=== PATIENT | female | born 1955 | race Caucasian/White ===

== ENCOUNTER → 2020-10-10 13:36 | Outpatient (CLI) | payer MEDICARE, MEDICAID, SELFPAY ==
[2020-10-11 14:16] LABS: Covid-19 Nasal PCR Sendout Lex POSITIVE
== END ==
PROVIDERS: Visit Provider Family Medicine
DX: Z20.828 Contact with and (suspected) exposure to other viral communicable diseases (principal); U07.1 COVID-19
CPT/HCPCS: U0004

== ENCOUNTER 2021-07-30 17:35 | Inpatient (IN) | payer MEDICARE, MEDICAID, SELFPAY ==
[2021-07-30] VITALS (10 sets, daily range): BP systolic 95–118; BP diastolic 60–92; PULSE 84–108; RESP 16; TEMP 36.6; O2SAT 96–99; BMI 39.4; BMI 46.3; BMI 36.0
[2021-07-30 18:10] LABS: Basophils # 0.1 K/mm3 (0-0.2); Basophils % 0.7 % (0.1-2.0); Chloride 107 mmol/L (98-107); Eosinophils # 0.2 K/mm3 (0.0-0.4); Eosinophils % 1.5 % (0.1-12.0); Hematocrit 42.5 % (37.0-47.0); Hemoglobin 12.8 g/dL (12.2-16.2); Lymphocytes # 2.2 K/mm3 (0.7-4.5); Lymphocytes % 20.2 % (10-50); Mean Corpuscular HGB Conc 30.1 g/dL (31.8-35.4); Mean Corpuscular Hemoglobin 24.5 pg (27.0-31.2); Mean Corpuscular Volume 81.4 fl (81-99); Mean Platelet Volume 6.7 fl (7.4-10.4); Monocytes # 0.5 K/mm3 (0.1-1.0); Monocytes % 4.9 % (1.7-9.3); Neutrophils # 7.8 K/mm3 (1.8-7.8); Neutrophils % 72.7 % (37.0-80.0); Platelet Count 371 K/mm3 (142-424); Potassium 4.4 mmoL/L (3.5-5.1); Red Blood Count 5.22 M/mm3 (4.20-5.40); Red Cell Distribution Width 18.3 % (11.5-17.5); Sodium 145 mmol/L (136-145); White Blood Count 10.7 K/mm3 (4.8-10.8)
[2021-07-30 18:13] LABS: Alanine Aminotransferase 37 U/L (12-78); Albumin Level 3.8 g/dl (3.5-5.0); Alkaline Phosphatase 143 U/L (38-126); Anion Gap 16.4 mEq/L (5-15); Aspartate Amino Transferase 59 U/L (14-36); Bilirubin,Total 0.3 mg/dl (0.2-1.3); Blood Urea Nitrogen 22 mg/dl (7-17); Carbon Dioxide 26 mmol/L (22.0-30.0); Creatinine Clearance Estimated 46 mL/min (50-200); Estimated Glomerular Filt Rate 71 ml/min (>60); GFR (African American) 86 ML/MIN (>60); Globulin 3.9 g/dL (1.3-3.2); Total Protein,Serum 7.7 g/dl (6.3-8.2)
[2021-07-30 18:14] LABS: Calcium 9.2 mg/dl (8.4-10.2); Glucose 181 mg/dl (74-100)
--- NOTE | 2021-07-30 19:21 | PC.NURSE ---
pt sister phone number pt sister is thi rahman states she is at work in [place] but can be reach on her cell phone
--- NOTE | 2021-07-30 19:40 | CT_ITS ---
PROCEDURE INFORMATION: Exam: CT Abdomen And Pelvis With Contrast Exam date and time: 07/30/2021 7:40 PM Age: 66 years old Clinical indication: Other: Gi bleed; Patient HX: Rectal bleeding, intermediate patient, confused TECHNIQUE: Imaging protocol: Computed tomography of the abdomen and pelvis with contrast. Radiation optimization: All CT scans at this facility use at least one of these dose optimization techniques: automated exposure control; mA and/or kV adjustment per patient size (includes targeted exams where dose is matched to clinical indication); or iterative reconstruction. Contrast material: ISOVUE; Contrast volume: 75 ml; Contrast route: IV; COMPARISON: No relevant prior studies available. FINDINGS: Lungs: Areas of infiltrate, atelectasis or scar at both lung bases, left greater than right. Small calcified granuloma noted within the left posterior costophrenic angle. There is pleural thickening noted at the left lung base. Coronary artery calcification identified within the coronary arteries. Liver: The liver is normal in size and attenuation. No intrahepatic biliary dilitation. Gallbladder and bile ducts: Cholecystectomy has been performed. No evidence of extrahepatic biliary dilatation. Pancreas: Normal. No ductal dilation. Spleen: Normal. No splenomegaly. Granulomatous calcifications are noted. Adrenal glands: Normal. No mass. Kidneys and ureters: Normal. No hydronephrosis. Stomach and bowel: Some thickening of the wall of the rectal vault. The possibility of inflammatory disease involving the rectum and anus is considered. This would be better assessed by direct visualization. There is diffuse fecal retention throughout the colon. The stomach and small bowel appear unremarkable. Small hiatal hernia noted above the gastroesophageal junction. Appendix: Unremarkable. Intraperitoneal space: Unremarkable. No free air. No significant fluid collection. Vasculature: Atheromatous arterial calcification identified. No abdominal aortic aneurysm. Lymph nodes: Unremarkable. No enlarged lymph nodes. Urinary bladder: Unremarkable as visualized. Reproductive: Calcific myometrial changes would suggest the presence of small internal fibroids. The uterus does not appear enlarged. No evidence of adnexal mass. Bones/joints: Degenerative changes of the lower lumbar spine. No acute fracture. Soft tissues: Unremarkable. IMPRESSION: 1. There is some thickening of the rectal vault and the region of the anus. The possibility of inflammatory disease involving the rectum and anus is considered. This would be better assessed by direct visualization. No evidence of intestinal obstruction. 2. Area of infiltrate, atelectasis, or scar at the lung bases, greater on the left. 3. Cholecystectomy has been performed.
--- NOTE | 2021-07-30 20:26 | HMH.EDGENADL ---
ED Disposition Clinical Impression: Rectal bleeding Disposition: Admitted as Observation Condition on Discharge: Serious Instructions: DI for Gastrointestinal Bleeding Referrals: Keith Bravo [Primary Care Provider] - - Critical Care Critical Care Time: No Attestation: On 07/30/21, the high probability of a clinically significant, sudden or life threatening deterioration of the following system(s) required my full and direct attention, intervention and personal management. The time I documented below is in addition to time spent performing reported procedures but includes the following listed in this critical care notation. Medical Decision Making - Ervin Inquiry Pt receiving controlled substance: No Vital Signs: 07/30/21 17:35 Temperature 98 F Temperature Source Oral Pulse Rate [Radial] 84 Respiratory Rate 16 Blood Pressure [Right Arm] 101/60 L Blood Pressure Mean [Right Arm] 73 Blood Pressure Position [Right Arm] Sitting 02 Sat by Pulse Oximetry 96 Oxygen Delivery Method Room Air - Lab Data Lab Results 07/30/21 17:50: WBC 10.7, RBC 5.22, Hgb 12.8, Hct 42.5, MCV 81.4, MCH 24.5 L, MCHC 30.1 L, RDW 18.3 H, Plt Count 371, MPV 6.7 L, Neut % (Auto) 72.7, Lymph % (Auto) 20.2, Adams % (Auto) 4.9, Eos % (Auto) 1.5, Baso % (Auto) 0.7, Neut # (Auto) 7.8, Lymph # (Auto) 2.2, Adams # (Auto) 0.5, Eos # (Auto) 0.2, Baso # (Auto) 0.1 07/30/21 17:50: Sodium 145, Potassium 4.4, Chloride 107, Carbon Dioxide 26, Anion Gap 16.4 H, BUN 22 H, Creatinine 0.80, Estimated Creat Clear 46, Estimated GFR 71, Est GFR ( Amer) 86, Glucose 181 H, Calcium 9.2, Total Bilirubin 0.3, AST 59 H, ALT 37, Alkaline Phosphatase 143 H, Total Protein 7.7, Albumin 3.8, Globulin 3.9 H, Albumin/Globulin Ratio 1.0 L 07/30/21 17:50: PT 12.6 H, INR 1.07, APTT 24.6 07/30/21 20:50: Blood Type A Positive, Antibody Screen Negative 07/30/21 21:17: SARS-CoV-2 (PCR) Not detected, Influenza A Untype (PCR) Not detected, Influenza Type B (PCR) Not detected Result diagrams: 07/30/21 17:50 07/30/21 17:50 Orders (Tests/Meds): ED MEDICATIONS Discontinued Medications Generic Name Dose Route Start Last Admin Trade Name Olmanq PRN Reason Stop Dose Admin Iopamidol 75 ml 07/30/21 21:16 07/30/21 21:17 Iopamidol-370 (76%);100ml Bottle IV 07/30/21 21:17 75 ml ONCE ONE Administration Sodium Chloride 10 ml 07/30/21 21:16 07/30/21 21:17 Sodium Chloride 0.9% 10ml Syr (Rad Only) IV 07/30/21 21:17 10 ml ONCE ONE Administration Sodium Chloride 1,000 ml 07/30/21 22:05 Sodium Chloride 0.9% 1000ml Bag IV 07/30/21 22:06 BOLUS ONE ORDERS Category Date Time Status Occult Blood,Stool Stat Lab 07/30/21 19:40 Ordered Urinalysis and Microscopic Stat Lab 07/30/21 19:39 Ordered - CT Data CT Scan: Abdomen, Pelvis Time Received: 22:[address] Reviewed: Yes: I have viewed the radiologist's interpretation Findings Narrative: PROCEDURE INFORMATION: Exam: CT Abdomen And Pelvis With Contrast Exam date and time: 07/30/2021 7:40 PM Age: 66 years old Clinical indication: Other: Gi bleed; Patient HX: Rectal bleeding, fdc patient, confused TECHNIQUE: Imaging protocol: Computed tomography of the abdomen and pelvis with contrast. Radiation optimization: All CT scans at this facility use at least one of these dose optimization techniques: automated exposure control; mA and/or kV adjustment per patient size (includes targeted exams where dose is matched to clinical indication); or iterative reconstruction. Contrast material: ISOVUE; Contrast volume: 75 ml; Contrast route: IV; COMPARISON: No relevant prior studies available. FINDINGS: Lungs: Areas of infiltrate, atelectasis or scar at both lung bases, left greater than right. Small calcified granuloma noted within the left posterior costophrenic angle. There is pleural thickening noted at the left lung base. Coronary artery calcification
[2021-07-30 20:57] LABS: Activated Partial Thrombo Time 24.6 seconds (22.8-30.6); Prothrombin Time 12.6 seconds (10.1-12.5)
[2021-07-30 20:58] LABS: INR 1.07 (0.9-1.1)
[2021-07-30 21:26] LABS: Coronavirus 19, PCR Not Detected (NotDetected); Influenza A, PCR Not Detected (NotDetected); Influenza B, PCR Not Detected (NotDetected)
--- NOTE | 2021-07-30 22:33 | PC.NURSE ---
Daughter called Password: [email or web address]
[2021-07-31] VITALS (18 sets, daily range): BP systolic 94–150; BP diastolic 56–94; PULSE 81–98; RESP 16–20; TEMP 36.2–37; O2SAT 92–98; BMI 36.0
--- NOTE | 2021-07-31 00:16 | PC.NURSE ---
patient arrived to floor via stretcher @ 00:00.f
[2021-07-31 06:14] LABS: POC Glucose,Bedside 136 (70-110)
[2021-07-31 07:10] LABS: Basophils # 0.1 K/mm3 (0-0.2); Basophils % 0.7 % (0.1-2.0); Eosinophils # 0.2 K/mm3 (0.0-0.4); Eosinophils % 1.8 % (0.1-12.0); Hematocrit 30.8 % (37.0-47.0); Lymphocytes # 3.1 K/mm3 (0.7-4.5); Lymphocytes % 34.7 % (10-50); Mean Corpuscular HGB Conc 31.3 g/dL (31.8-35.4); Mean Corpuscular Hemoglobin 25.3 pg (27.0-31.2); Mean Corpuscular Volume 80.7 fl (81-99); Mean Platelet Volume 6.5 fl (7.4-10.4); Monocytes # 0.7 K/mm3 (0.1-1.0); Monocytes % 7.9 % (1.7-9.3); Neutrophils # 4.9 K/mm3 (1.8-7.8); Neutrophils % 54.9 % (37.0-80.0); Platelet Count 298 K/mm3 (142-424); Red Blood Count 3.81 M/mm3 (4.20-5.40); Red Cell Distribution Width 18.4 % (11.5-17.5); White Blood Count 8.9 K/mm3 (4.8-10.8)
--- NOTE | 2021-07-31 07:11 | P.CONPHA_ITS ---
[facility] Pharmacy VTE Monitoring - Patient Demographics Admission date: 07/30/21 Report Date: 07/31/21 Time: 07:11 Allergies/Adverse Reactions: Patient Allergies iodine Allergy (Verified 07/30/21 17:40) Height: 1.63 m Weight: 95.799 kg Patient Problems: Current Active Problems Rectal bleeding (Acute) - VTE Risk Labs: VTE Related Lab Results Hgb 12.8 g/dL (12.2-16.2) 07/30/21 17:50 Hct 42.5 % (37.0-47.0) 07/30/21 17:50 Plt Count 371 K/mm3 (142-424) 07/30/21 17:50 PT 12.6 seconds (10.1-12.5) H 07/30/21 17:50 INR 1.07 (0.9-1.1) 07/30/21 17:50 APTT 24.6 seconds (22.8-30.6) 07/30/21 17:50 BUN 22 mg/dl (7-17) H 07/30/21 17:50 Creatinine 0.80 mg/dl (0.52-1.04) 07/30/21 17:50 Estimated Creat Clear 46 mL/min (50-200) 07/30/21 17:50 Was VTE Risk Assessment Performed: Yes - Prophylaxis VTE Prophylaxis Ordered?: Yes Types of VTE Prophylaxis: TEDS Knee High Location of Applied Device: Bilateral Lower Extremeties
[2021-07-31 07:38] LABS: Hemoglobin 9.6 g/dL (12.2-16.2)
--- NOTE | 2021-07-31 07:57 | HMH.PHAINT ---
verified home medication list using MAR from [facility]
--- NOTE | 2021-07-31 09:13 | HMH.GSCON ---
*Admission Date: 07/30/21 *Reason for consult:: Lower GI bleed *History of present illness: Patient is a 66-year-old female who presented to the emergency department yesterday evening from group home with rectal bleeding. She was admitted for inpatient management and surgical consultation. She had a CT scan which revealed possible thickening of the rectum. Review of Systems - Review of Systems Review of systems:: unable to obtain [facility] History I have reviewed the patient's past medical history: Yes Medical History: Reports:: Congestive Heart Failure, Diabetes Mellitus Type 2, Hyperlipidemia Denies:: Cancer, Diabetes Mellitus Type 1, MRSA *Have you ever received a pneumonia vaccine?: Yes *Have you received a flu vaccine this season?: Yes Other Medical History: Reports: Arthritis Amputation: Yes (Right BKA) Fractures: No - *Social History Smoking Status: Smoker, status unknown Alcohol Intake: never *Occupational Status:: disabled *Travel in the last 8 weeks: None Family Hx:: Unable to obtain [facility] Home Medications Medication Instructions Recorded Confirmed Type Aspirin [Aspirin 81mg EC Tab] 81 mg PO DAILY 07/30/21 07/30/21 History Atorvastatin Calcium [Lipitor 80mg 80 mg PO HS 07/30/21 07/30/21 History Tab] Clopidogrel Bisulfate [Clopidogrel 75 mg PO DAILY 07/30/21 07/30/21 History 75mg Tab] Furosemide [Furosemide 40MG tAB*] 40 mg PO DAILY 07/30/21 07/30/21 History Gabapentin 300 mg PO BID 07/30/21 07/30/21 History Insulin Glargine,Hum.rec.anlog 20 unit SQ DAILY 07/30/21 07/30/21 History [Lantus Insulin 100units/mL 10mL vial] Metoprolol Tartrate 50 mg PO BID 07/30/21 07/30/21 History Mirtazapine 45 mg PO HS 07/30/21 07/30/21 History OLANZapine [Zyprexa] 2.5 mg PO BID 07/30/21 07/31/21 History Pantoprazole Sodium 40 mg PO DAILY 07/30/21 07/30/21 History Pramipexole Di-HCl [Pramipexole 1 mg PO HS 07/30/21 07/30/21 History Dihydrochloride] Quetiapine Fumarate 50 mg PO QID 07/30/21 07/31/21 History lisinopriL [Lisinopril] 5 mg PO DAILY 07/30/21 07/30/21 History methocarbamoL [Methocarbamol 500mg 500 mg PO QID 07/30/21 07/30/21 History Tablet] mycophenolate mofetiL 500 mg PO BID 07/30/21 07/30/21 History [Mycophenolate Mofetil] predniSONE [Deltasone 10mg 10 mg PO DAILY 07/30/21 07/30/21 History tablet] Docusate Sodium [Docusate Sodium 100 mg PO DAILYP PRN 07/31/21 07/31/21 History 100mg Cap] Melatonin 3 mg PO HS 07/31/21 07/31/21 History Multivitamin 1 tab PO DAILY 07/31/21 07/31/21 History Nitroglycerin [Nitrostat 0.4mg SL 0.4 mg SL Q5MINP PRN 07/31/21 07/31/21 History Tablet] bisacodyL [Dulcolax 10mg Supp] 10 mg RC DAILYP PRN 07/31/21 07/31/21 History polyethylene glycoL 3350 [Miralax 17 gm PO DAILY 07/31/21 07/31/21 History 17gm Packet] Allergies Allergy/AdvReac Type Severity Reaction Status Date / Time iodine Allergy Verified 07/30/21 17:40 Exam Vital signs and Labs for Last 24 Hours: Temp Pulse Resp BP Pulse Ox 97.9 F 81 18 121/66 96 07/31/21 08:00 07/31/21 08:00 07/31/21 08:00 07/31/21 08:00 07/31/21 08:00 Laboratory Results - last 24 hr 07/30/21 17:50: WBC 10.7, RBC 5.22, Hgb 12.8, Hct 42.5, MCV 81.4, MCH 24.5 L, MCHC 30.1 L, RDW 18.3 H, Plt Count 371, MPV 6.7 L, Neut % (Auto) 72.7, Lymph % (Auto) 20.2, [place] % (Auto) 4.9, Eos % (Auto) 1.5, Baso % (Auto) 0.7, Neut # (Auto) 7.8, Lymph # (Auto) 2.2, [place] # (Auto) 0.5, Eos # (Auto) 0.2, Baso # (Auto) 0.1 07/30/21 17:50: Sodium 145, Potassium 4.4, Chloride 107, Carbon Dioxide 26, Anion Gap 16.4 H, BUN 22 H, Creatinine 0.80, Estimated Creat Clear 46, Estimated GFR 71, Est GFR ( Amer) 86, Glucose 181 H, Calcium 9.2, Total Bilirubin 0.3, AST 59 H, ALT 37, Alkaline Phosphatase 143 H, Total Protein 7.7, Albumin 3.8, Globulin 3.9 H, Albumin/Globulin Ratio 1.0 L 07/30/21 17:50: PT 12.6 H, INR 1.07, APTT 24.6 07/30/21 20:50: Blood Type A Positive, Antibody Screen Negat
--- NOTE | 2021-07-31 10:03 | SW/DCPLANNER ---
Addendum entered by Alondra Abad 08/03/21 09:19: I have informed Linda with [facility] that this patient will return today. Linda has requested an additional COVID swab: results are negative and have been faxed. Addendum entered by Alondra Abad 07/31/21 10:30: CORRECTION: Patient is SNF level of care Original Note: This patient currently resides at [facility]. I spoke with Linda from [facility] and she confirmed that patient is [facility] level of care. I will continue to follow up with MD and [facility] until patient is medically stable for discharge. Discharge date is unknown at this time.
--- NOTE | 2021-07-31 11:08 | HMH.HP ---
*Admission Date: 07/30/21 *Chief complaint: gi bleeding *History of present illness: this patient presented to the ed- ED PER SQU[facility] SENT FROM [facility] FOR EVAL DUE TO RECTAL BLEEDING WITH 4 BLOODY BOWEL MOVEMENTS TODAY PT CONFUSED WHICH IS PT'S NORMAL MS. PT DENIES ANY C/O AT PRESENT The patient has severe dementia and is mainly unable to give any history herself. She is transferred from [facility] with report that she has had 4 episodes of rectal bleeding today. pt was admitted with gi bleed for eval [facility] History I have reviewed the patient's past medical history: Yes Medical History: Reports:: Congestive Heart Failure, Diabetes Mellitus Type 2, Hyperlipidemia Denies:: Cancer, Diabetes Mellitus Type 1, MRSA *Have you ever received a pneumonia vaccine?: Yes *Have you received a flu vaccine this season?: Yes Other Medical History: Reports: Arthritis Amputation: Yes (Right BKA) Fractures: No - *Social History Smoking Status: Smoker, status unknown Alcohol Intake: never *Occupational Status:: disabled *Travel in the last 8 weeks: None Family Hx:: Unable to obtain Review of Systems - Review of Systems Review of systems:: unable to obtain Meds Home Medications Medication Instructions Recorded Confirmed Type Aspirin [Aspirin 81mg EC Tab] 81 mg PO DAILY 07/30/21 07/30/21 History Atorvastatin Calcium [Lipitor 80mg 80 mg PO HS 07/30/21 07/30/21 History Tab] Clopidogrel Bisulfate [Clopidogrel 75 mg PO DAILY 07/30/21 07/30/21 History 75mg Tab] Furosemide [Furosemide 40MG tAB*] 40 mg PO DAILY 07/30/21 07/30/21 History Gabapentin 300 mg PO BID 07/30/21 07/30/21 History Insulin Glargine,Hum.rec.anlog 20 unit SQ DAILY 07/30/21 07/30/21 History [Lantus Insulin 100units/mL 10mL vial] Metoprolol Tartrate 50 mg PO BID 07/30/21 07/30/21 History Mirtazapine 45 mg PO HS 07/30/21 07/30/21 History OLANZapine [Zyprexa] 2.5 mg PO BID 07/30/21 07/31/21 History Pantoprazole Sodium 40 mg PO DAILY 07/30/21 07/30/21 History Pramipexole Di-HCl [Pramipexole 1 mg PO HS 07/30/21 07/30/21 History Dihydrochloride] Quetiapine Fumarate 50 mg PO QID 07/30/21 07/31/21 History lisinopriL [Lisinopril] 5 mg PO DAILY 07/30/21 07/30/21 History methocarbamoL [Methocarbamol 500mg 500 mg PO QID 07/30/21 07/30/21 History Tablet] mycophenolate mofetiL 500 mg PO BID 07/30/21 07/30/21 History [Mycophenolate Mofetil] predniSONE [Deltasone 10mg 10 mg PO DAILY 07/30/21 07/30/21 History tablet] Docusate Sodium [Docusate Sodium 100 mg PO DAILYP PRN 07/31/21 07/31/21 History 100mg Cap] Melatonin 3 mg PO HS 07/31/21 07/31/21 History Multivitamin 1 tab PO DAILY 07/31/21 07/31/21 History Nitroglycerin [Nitrostat 0.4mg SL 0.4 mg SL Q5MINP PRN 07/31/21 07/31/21 History Tablet] bisacodyL [Dulcolax 10mg Supp] 10 mg RC DAILYP PRN 07/31/21 07/31/21 History polyethylene glycoL 3350 [Miralax 17 gm PO DAILY 07/31/21 07/31/21 History 17gm Packet] Allergies Allergy/AdvReac Type Severity Reaction Status Date / Time iodine Allergy Verified 07/30/21 17:40 Exam Vital signs and Labs for Last 24 Hours: Temp Pulse Resp BP Pulse Ox 97.9 F 81 18 121/66 96 07/31/21 08:00 07/31/21 08:00 07/31/21 08:00 07/31/21 08:00 07/31/21 08:00 Laboratory Results - last 24 hr 07/30/21 17:50: WBC 10.7, RBC 5.22, Hgb 12.8, Hct 42.5, MCV 81.4, MCH 24.5 L, MCHC 30.1 L, RDW 18.3 H, Plt Count 371, MPV 6.7 L, Neut % (Auto) 72.7, Lymph % (Auto) 20.2, [place] % (Auto) 4.9, Eos % (Auto) 1.5, Baso % (Auto) 0.7, Neut # (Auto) 7.8, Lymph # (Auto) 2.2, [place] # (Auto) 0.5, Eos # (Auto) 0.2, Baso # (Auto) 0.1 07/30/21 17:50: Sodium 145, Potassium 4.4, Chloride 107, Carbon Dioxide 26, Anion Gap 16.4 H, BUN 22 H, Creatinine 0.80, Estimated Creat Clear 46, Estimated GFR 71, Est GFR ( Amer) 86, Glucose 181 H, Calcium 9.2, Total Bilirubin 0.3, AST 59 H, ALT 37, Alkaline Phosphatase 143 H, Total Prot
[2021-07-31 11:40] LABS: POC Glucose,Bedside 143 (70-110)
--- NOTE | 2021-07-31 13:16 | P.PN_ITS ---
[facility] Anesthesia Checklist - Patient Identification Patient Identification: Arm Band - Structural Data Admitted From: Inpatient Planned Operative Procedure/s: EGD Consent for Planned Operative Procedure(s) Verified: Yes - NPO Status Verified Time NPO: 00:00 - Airway Assessment C-Spine Mobility Assessed: Yes TMJ Mobility Assessed: Yes Dentition: Edentulous - Neurological Assessment Level of Consciousness: Awake Hx Seizures: No Numbness or tingling in extremities: No - Anesthesia Plan Anesthesia Risk discussed: Yes Anesthesia Plan: Verified ASA Class: III Anesthesia Type: MAC [facility] History I have reviewed the patient's past medical history: Yes Medical History: Reports:: Congestive Heart Failure, Diabetes Mellitus Type 2, Hyperlipidemia Denies:: Cancer, Diabetes Mellitus Type 1, MRSA *Have you ever received a pneumonia vaccine?: Yes *Have you received a flu vaccine this season?: Yes Other Medical History: Reports: Arthritis Anesthesia experience/problems:: None Amputation: Yes (Right BKA) Fractures: No - *Social History Smoking Status: Smoker, status unknown Alcohol Intake: never Substance Use Type: denies use *Occupational Status:: disabled *Travel in the last 8 weeks: None Family Hx:: Unable to obtain
--- NOTE | 2021-07-31 13:17 | PC.NURSE ---
Pt down for EGDat this time, spoke with ANISA Calhoun for consent for procedure as well as Photo consent.
--- NOTE | 2021-07-31 14:34 | HMH.PROC ---
[facility] Procedure Note Procedure Note:: Upper Endoscopy Procedure Report: Esophagogastroduodenoscopy with cold biopsies Endoscopost: Micah Valencia II, MD Referring Physician: Endy Goff MD/Ketih Platt MD Date of Procedure: July 31, 2021 Equipment: Olympus GIF 190 standard upper endoscope Sedation: MAC sedation Indications: Mrs. Gary is a 66-year-old female that was brought from the senior care with bright red rectal bleeding. In the emergency department her initial hemoglobin was 12.8 and 42.5. With hydration this did decline to 9.[address] scan of the abdomen and pelvis did show thickening of the rectal vault suggestive of inflammatory condition involving the rectum. Because of her slightly increased BUN, Dr. Goff requested EGD to rule out upper GI source. The patient is a poor historian with some cognitive impairment. Procedure: Prior to the procedure, a history and physical exam was performed, and patient's medications and allergies were reviewed. The risks, benefits and alternatives of the sedation and procedure were discussed with the patient. All questions were answered and informed consent was obtained. The patient was brought to the procedure room. Patient identification and proposed procedure were verified by the physician and the nurse. The patient was placed in a left lateral decubitus position and the scope was passed under direct vision. Throughout the procedure, the patient's blood pressure, pulse, and oxygen saturations were monitored continuously. The upper GI endoscopy was accomplished without difficulty. The patient tolerated the procedure well. Findings: The scope was passed directly into the upper esophagus and advanced to the third portion of the duodenum. The post bulbar duodenum and duodenal bulb were normal with normal mucosa and conniventes. The scope was withdrawn through a normal duodenal bulb and pylorus into the stomach. There was moderate bile reflux with moderate linear reactive gastropathy of the antrum, body and fundus. Upon retroflexion there was no hiatal hernia. 2 biopsies were taken in the antrum and along the lesser curvature for histology to rule out gastritis and/or H pylori. The scope was then withdrawn into the esophagus. There was a serrated Z-line. There was no evidence of reflux esophagitis or Caro's. The remainder of the esophageal mucosa was normal. Impression: 1. Bile reflux with linear reactive gastropathy Plan: There was no source of acute GI bleeding. I suspect that this is a lower GI tract source of overt bleeding and possibly proctocolitis or diverticular hemorrhage. Additionally, this could be malignant rectal mass. I would recommend colonoscopy as inpatient. I will request perform tomorrow if possible.
--- NOTE | 2021-07-31 20:17 | PC.NURSE ---
Pt has been very anxious and yelling out this shift. Did call and speak with Dr. Garcia and he gave a one time order for po Vistaril 25 mg. Pt has calmed some but still yells out intermittently. CB in reach. VSS.
[2021-07-31 21:08] LABS: POC Glucose,Bedside 164 (70-110)
[2021-07-31 22:13] LABS: POC Glucose,Bedside 110 (70-110)
[2021-08-01] VITALS (17 sets, daily range): BP systolic 106–156; BP diastolic 57–85; PULSE 75–114; RESP 14–21; TEMP 36.6–37.1; O2SAT 95–100; BMI 37.3
--- NOTE | 2021-08-01 03:50 | PC.NURSE ---
AT BEDSIDE TO DO A RECTAL EXAM.PT DID NOT TOLERATE WELL,HE SAID HE DID NOT FEEL A MASS,PT HAD ANOTHER LOOSE BLOODY STOOL.PT HAS HEMORRIODS
[2021-08-01 05:52] LABS: POC Glucose,Bedside 106 (70-110)
--- NOTE | 2021-08-01 06:00 | PC.NURSE ---
PT HAS BEEN YELLING OFF AND ON TONIGHT,REFUSING NOW TO TAKE HER GOLYTELY,SHE HAS HAD SEVERAL BLOODY STOOLS,SHE HAS TWO OPEN AREAS ON HER BUTTOCKS THAT HAVE ALLEVYN LIFE PADS ON THEM,PT HAS HEMORROIDS,WITH RECTAL EXAM THIS MORNING NO MASS WAS FELT,WILL CONTINUE TO MONITOR
--- NOTE | 2021-08-01 07:00 | PC.NURSE ---
CONSENT OVER THE PHONE WAS GIVEN PER PHIL NORMAN PT SISTER FOR A COLOSCOPY,WITNESS PER MYSELF AND MAGENRN
[2021-08-01 08:59] LABS: Basophils # 0.1 K/mm3 (0-0.2); Basophils % 1.6 % (0.1-2.0); Eosinophils # 0.3 K/mm3 (0.0-0.4); Eosinophils % 3.1 % (0.1-12.0); Hematocrit 30.8 % (37.0-47.0); Hemoglobin 9.5 g/dL (12.2-16.2); Lymphocytes % 33.1 % (10-50); Mean Corpuscular HGB Conc 30.9 g/dL (31.8-35.4); Mean Corpuscular Hemoglobin 25.2 pg (27.0-31.2); Mean Corpuscular Volume 81.5 fl (81-99); Mean Platelet Volume 7.8 fl (7.4-10.4); Monocytes # 0.4 K/mm3 (0.1-1.0); Monocytes % 4.4 % (1.7-9.3); Neutrophils # 5.2 K/mm3 (1.8-7.8); Neutrophils % 57.8 % (37.0-80.0); Platelet Count 335 K/mm3 (142-424); Red Blood Count 3.77 M/mm3 (4.20-5.40); Red Cell Distribution Width 18.9 % (11.5-17.5)
[2021-08-01 09:15] LABS: Chloride 111 mmol/L (98-107); Potassium 3.5 mmoL/L (3.5-5.1); Sodium 145 mmol/L (136-145)
[2021-08-01 09:18] LABS: Anion Gap 14.5 mEq/L (5-15); Blood Urea Nitrogen 19 mg/dl (7-17); Carbon Dioxide 23 mmol/L (22.0-30.0); Creatinine Clearance Estimated 84 mL/min (50-200); Estimated Glomerular Filt Rate 71 ml/min (>60); GFR (African American) 86 ML/MIN (>60)
[2021-08-01 09:19] LABS: Calcium 8.3 mg/dl (8.4-10.2); Glucose 116 mg/dl (74-100)
--- NOTE | 2021-08-01 09:42 | PC.NURSE ---
0834: pt. leaving floor for colonoscopy.
--- NOTE | 2021-08-01 10:56 | HMH.SCOPE ---
- Procedure: Date: 08/01/21 Patient Date of :: 1955 Procedure Performed:: Total colonoscopy with polypectomy x2 by snare and control of rectal hemorrhage with deployment of Hemoclip x3 Indications:: Patient is a 66-year-old female who is a [facility]itentiary patient. She was admitted in the evening of 07/30/2021 with rectal bleeding. Hemoglobin on admission was 12.8. CT scan revealed findings of possible thickening of the rectum. She was admitted for inpatient management. The following morning surgical consultation was obtained. Gastroenterology was consulted as well. Gastroenterology performed upper endoscopy which was unremarkable for any source of GI bleeding. It was felt that this may be lower GI source. Patient underwent bowel preparation. She was not terribly compliant with the bowel preparation. She did continue to pass some blood clots per rectum. Arrangements were made for colonoscopy. Performing Provider:: Endy Goff MD Referring Provider:: Jose Platt MD Sedation:: MAC sedation Procedure:: Patient was taken to endoscopy procedure room. She was positioned in lateral decubitus position. She was found to have some external hemorrhoids. Variable stiffness Olympus colonoscope was inserted via the anus. Multiple large blood clots were encountered within the rectum. The colonoscope was able to be advanced beyond this. It was ultimately able to be advanced to the cecum. The ileocecal valve and appendiceal orifice were clearly identified. Colonic preparation was poor to fair. Within the cecum there were findings of minor melanosis coli. In the ascending colon just distal to the ileocecal valve there was a pedunculated polyp which was removed with cold cutting snare in its entirety. Due to the poor preparation it was unclear if this was able to be retrieved. Colonoscope was slowly withdrawn through the colon with careful surveillance with very thorough irrigation and suctioning. Please note that proximal to the rectosigmoid region there was no evidence of any blood but merely particulate stool. In the transverse colon there was a subtle ridge polyp removed with cold cutting snare. Colonoscope was withdrawn through the remainder of the left colon. There was no evidence of any diverticuli. Within the rectum once again multiple large clots were encountered. To allow for visualization these were removed with the Julian net with multiple reinsertion and retrieval of blood clot. Digital evacuation of large amount of blood clot was able to be performed as well. The colonoscope was then inserted and once all blood clots were evacuated retroflexion was performed. There was evidence of linear mucosal tear in the distal rectum essentially at the anorectal region. There was some slow pulsatile hemorrhage from this location. Consideration was being given for possible banding for hemostasis versus taking to the operating room for oversewing of this tear. Ultimately several hemoclips were able to be deployed colonoscopically which seemed to result in good hemostasis. Once hemostasis appeared to be assured colonoscope was withdrawn. Findings:: Ascending colon polyp Transverse colon ridge polyp Large amount of blood clots within the rectum Anorectal mucosal tear with active bleeding, hemostasis achieved with Hemoclip deployment Recommendations:: Monitor hemoglobin for stability. If patient develops recurrent bleeding may require rectal exam under anesthesia with oversewing. Complications:: None immediately apparent Estimated blood obtained (mL): 50
--- NOTE | 2021-08-01 11:51 | HMH.ACPN2 ---
Internal Medicine - PN: Subj *Date: 08/01/21 *Time: 08:58 Interval history: 66-year-old female patient sitting up in bed resting quietly she denies any pain or respiratory distress during the night. She underwent an EGD yesterday which was negative and displayed no active bleeding. She will undergo a colonoscopy today. Exam Vital signs and Labs for Last 24 Hours: Temp Pulse Resp BP Pulse Ox 98.7 F 92 H 18 132/76 100 08/01/21 08:00 08/01/21 10:50 08/01/21 10:50 08/01/21 10:50 08/01/21 10:50 Laboratory Results - last 24 hr 07/31/21 16:05: POC Glucose 164 H 07/31/21 21:59: POC Glucose 110 08/01/21 05:43: POC Glucose 106 08/01/21 08:37: WBC 9.0, RBC 3.77 L, Hgb 9.5 L, Hct 30.8 L, MCV 81.5, MCH 25.2 L, MCHC 30.9 L, RDW 18.9 H, Plt Count 335, MPV 7.8, Neut % (Auto) 57.8, Lymph % (Auto) 33.1, [place] % (Auto) 4.4, Eos % (Auto) 3.1, Baso % (Auto) 1.6, Neut # (Auto) 5.2, Lymph # (Auto) 3.0, [place] # (Auto) 0.4, Eos # (Auto) 0.3, Baso # (Auto) 0.1 08/01/21 08:37: Sodium 145, Potassium 3.5 D, Chloride 111 H, Carbon Dioxide 23, Anion Gap 14.5, BUN 19 H, Creatinine 0.80, Estimated Creat Clear 84, Estimated GFR 71, Est GFR ( Amer) 86, Glucose 116 H, Calcium 8.3 L I & O for Last 24 hours: Intake & Output 07/29/21 07/30/21 07/31/21 08/01/21 23:59 23:59 23:59 23:59 Intake Total 0 / 0 700 / 700 Output Total 0 / 0 Balance 0 / 0 700 / 700 Weight 211 lb 3.2 oz 211 lb 3.21 oz 218 lb 7 oz - Constitutional no acute distress - *Routine HEENT Exam Head: Present: normocephalic Eye: Present: EOMI ENT: Present: mucous membranes moist - *Routine Neck Exam Present: trachea midline. Absent: JVD - *Routine Respiratory Exam Present: decreased breath sounds. Absent: accessory muscle use - *Routine Cardiovascular Exam Present: RRR, murmur - *Routine Abdominal Exam Present: soft, normoactive bowel sounds, tenderness. Absent: rigid - *Routine Extremities Exam Present: amputation. Absent: cyanosis Comments: R AKA w/[place] - *Routine Skin Exam Present: dry, warm, wounds. Absent: cyanosis, erythema Comments: [place] intact R AKA - *Routine Neurological Exam Present: alert, altered mental status. Absent: motor deficit - Routine Psychiatric Exam Present: unable to assess Assessment and Plan (1) Lower GI bleed Status: Acute Category: Medical Code(s): K92.2 - Gastrointestinal hemorrhage, unspecified (2) Obesity (BMI 30-39.9) Status: Acute Category: Medical Code(s): E66.9 - Obesity, unspecified (3) Anemia Status: Acute Qualifiers: Anemia type: unspecified type Qualified Code(s): D64.9 - Anemia, unspecified Category: Medical Code(s): D64.9 - Anemia, unspecified (4) CAD (coronary artery disease) Status: Acute Qualifiers: Coronary Disease-Associated Artery/Lesion type: [place] artery [place] vs. transplanted heart: [place] heart Associated angina: without angina Qualified Code(s): I25.10 - Atherosclerotic heart disease of [place] coronary artery without angina pectoris Category: Medical Code(s): I25.10 - Atherosclerotic heart disease of [place] coronary artery without angina pectoris (5) Dementia Status: Acute Qualifiers: Dementia type: unspecified type Dementia behavioral disturbance: without behavioral disturbance Qualified Code(s): F03.90 - Unspecified dementia without behavioral disturbance Category: Medical Code(s): F03.90 - Unspecified dementia without behavioral disturbance (6) Proctocolitis Status: Acute Category: Medical Code(s): K52.9 - Noninfective gastroenteritis and colitis, unspecified (7) S/P AKA (above knee amputation) Status: Acute Qualifiers: Laterality: right Qualified Code(s): Z89.611 - Acquired absence of right leg above knee Category: Surgical Code(s): Z89.619 - Acquired absence of unspecified leg above knee (8) Diabetes Status: Acute Qualifiers: Diabetes mellitus t
--- NOTE | 2021-08-01 14:33 | PC.NURSE ---
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
--- NOTE | 2021-08-01 15:12 | PC.NURSE ---
Spoke with Dr. Minaya regarding pt. refusal of blood work. No new orders orders at this time.
[2021-08-01 16:15] LABS: POC Glucose,Bedside 150 (70-110)
[2021-08-01 20:31] LABS: POC Glucose,Bedside 120 (70-110)
--- NOTE | 2021-08-01 21:04 | PC.NURSE ---
Pictures taken of pts wounds and R BKA and they are on camera # [id number]
[2021-08-02] VITALS (26 sets, daily range): BP systolic 124–164; BP diastolic 60–87; PULSE 85–101; RESP 14–20; TEMP 36.6–36.9; O2SAT 92–98; BMI 36.6
[2021-08-02 02:06] LABS: POC Glucose,Bedside 166 (70-110)
--- NOTE | 2021-08-02 03:59 | PC.NURSE ---
Patient has been confused this shift. At the beginning of shift 5mg of Haldol was given IM per Dr. Minaya due to patient's agitation and yelling outbursts. IV access was lost at 0400. Will attempt to regain. No acute changes where notes, VSS, will continue to monitor.
[2021-08-02 05:38] LABS: POC Glucose,Bedside 96 (70-110)
[2021-08-02 07:14] LABS: Basophils # 0.1 K/mm3 (0-0.2); Basophils % 0.8 % (0.1-2.0); Eosinophils # 0.2 K/mm3 (0.0-0.4); Eosinophils % 2.7 % (0.1-12.0); Hematocrit 22.7 % (37.0-47.0); Lymphocytes # 2.6 K/mm3 (0.7-4.5); Lymphocytes % 42.2 % (10-50); Mean Corpuscular HGB Conc 30.7 g/dL (31.8-35.4); Mean Corpuscular Volume 81.5 fl (81-99); Mean Platelet Volume 8.1 fl (7.4-10.4); Monocytes # 0.4 K/mm3 (0.1-1.0); Monocytes % 5.8 % (1.7-9.3); Neutrophils % 48.5 % (37.0-80.0); Platelet Count 273 K/mm3 (142-424); Red Blood Count 2.78 M/mm3 (4.20-5.40); Red Cell Distribution Width 18.9 % (11.5-17.5); White Blood Count 6.1 K/mm3 (4.8-10.8)
--- NOTE | 2021-08-02 07:17 | HMH.GSPN ---
Subjective Narrative: Patient resting. No additional rectal bleeding overnight. Progress Note: A&P (1) Lower GI bleed Status: Acute (2) Obesity (BMI 30-39.9) Status: Acute (3) Anemia Status: Acute (4) CAD (coronary artery disease) Status: Acute (5) Dementia Status: Acute (6) Proctocolitis Status: Acute (7) S/P AKA (above knee amputation) Status: Acute (8) Diabetes Status: Acute (9) Rectal bleeding Status: Acute Assessment and Plan for All Diagnoses:: Hemoglobin has shown decreased to 7.0. May need transfusion. Doubt active bleeding at this time. Continue to monitor Exam Vital signs and Labs for Last 24 Hours: Temp Pulse Resp BP Pulse Ox 97.9 F 99 H 18 124/61 97 08/02/21 04:00 08/02/21 04:00 08/02/21 04:00 08/02/21 04:00 08/02/21 04:00 Laboratory Results - last 24 hr 08/01/21 08:37: WBC 9.0, RBC 3.77 L, Hgb 9.5 L, Hct 30.8 L, MCV 81.5, MCH 25.2 L, MCHC 30.9 L, RDW 18.9 H, Plt Count 335, MPV 7.8, Neut % (Auto) 57.8, Lymph % (Auto) 33.1, [place] % (Auto) 4.4, Eos % (Auto) 3.1, Baso % (Auto) 1.6, Neut # (Auto) 5.2, Lymph # (Auto) 3.0, [place] # (Auto) 0.4, Eos # (Auto) 0.3, Baso # (Auto) 0.1 08/01/21 08:37: Sodium 145, Potassium 3.5 D, Chloride 111 H, Carbon Dioxide 23, Anion Gap 14.5, BUN 19 H, Creatinine 0.80, Estimated Creat Clear 84, Estimated GFR 71, Est GFR ( Amer) 86, Glucose 116 H, Calcium 8.3 L 08/01/21 11:46: POC Glucose 150 H 08/01/21 16:54: POC Glucose 166 H 08/01/21 20:03: POC Glucose 120 H 08/02/21 05:26: POC Glucose 96 08/02/21 06:30: WBC 6.1 D, RBC 2.78 L D, Hgb 7.0 L, Hct 22.7 L, MCV 81.5, MCH 25.0 L, MCHC 30.7 L, RDW 18.9 H, Plt Count 273, MPV 8.1, Neut % (Auto) 48.5, Lymph % (Auto) 42.2, [place] % (Auto) 5.8, Eos % (Auto) 2.7, Baso % (Auto) 0.8, Neut # (Auto) 3.0, Lymph # (Auto) 2.6, [place] # (Auto) 0.4, Eos # (Auto) 0.2, Baso # (Auto) 0.1 I & O for Last 24 hours: Intake & Output 07/30/21 07/31/21 08/01/21 08/02/21 11:59 11:59 11:59 11:59 Intake Total 0 / 0 700 / 700 120 / 120 Output Total 0 / 0 Balance 0 / 0 700 / 700 120 / 120 Weight 211 lb 3.21 oz 218 lb 7 oz 214 lb 5 oz
--- NOTE | 2021-08-02 07:29 | PC.NURSE ---
Assignment was taken under duress at 7pm. Amber Pacheco RN manager was aware.
[2021-08-02 07:35] LABS: Anion Gap 12.7 mEq/L (5-15); Blood Urea Nitrogen 15 mg/dl (7-17); Calcium 8.1 mg/dl (8.4-10.2); Carbon Dioxide 22 mmol/L (22.0-30.0); Chloride 111 mmol/L (98-107); Creatinine Clearance Estimated 83 mL/min (50-200); Estimated Glomerular Filt Rate 99 ml/min (>60); GFR (African American) 120 ML/MIN (>60); Glucose 85 mg/dl (74-100); Potassium 3.7 mmoL/L (3.5-5.1); Sodium 142 mmol/L (136-145)
--- NOTE | 2021-08-02 09:32 | HMH.ACPN2 ---
Internal Medicine - PN: Subj *Date: 08/02/21 *Time: 13:59 Interval history: 66-year-old female patient sitting up in bed, she is pleasantly confused this morning oriented to purpose of hospital stay. She did undergo a colonoscopy yesterday per general surgery Findings:: Ascending colon polyp Transverse colon ridge polyp Large amount of blood clots within the rectum Anorectal mucosal tear with active bleeding, hemostasis achieved with Hemoclip deployment Hemoglobin this morning 7.0, she will receive 2 units of packed red blood cells. Exam Vital signs and Labs for Last 24 Hours: Temp Pulse Resp BP Pulse Ox 98.4 F 99 H 18 137/72 97 08/02/21 07:42 08/02/21 07:42 08/02/21 07:42 08/02/21 07:42 08/02/21 07:42 Laboratory Results - last 24 hr 07/30/21 20:50: Crossmatch (AHG) See Detail 08/01/21 11:46: POC Glucose 150 H 08/01/21 16:54: POC Glucose 166 H 08/01/21 20:03: POC Glucose 120 H 08/02/21 05:26: POC Glucose 96 08/02/21 06:30: WBC 6.1 D, RBC 2.78 L D, Hgb 7.0 L, Hct 22.7 L, MCV 81.5, MCH 25.0 L, MCHC 30.7 L, RDW 18.9 H, Plt Count 273, MPV 8.1, Neut % (Auto) 48.5, Lymph % (Auto) 42.2, [place] % (Auto) 5.8, Eos % (Auto) 2.7, Baso % (Auto) 0.8, Neut # (Auto) 3.0, Lymph # (Auto) 2.6, [place] # (Auto) 0.4, Eos # (Auto) 0.2, Baso # (Auto) 0.1 08/02/21 06:30: Sodium 142, Potassium 3.7, Chloride 111 H, Carbon Dioxide 22, Anion Gap 12.7, BUN 15, Creatinine 0.60 D, Estimated Creat Clear 83, Estimated GFR 99, Est GFR ( Amer) 120 D, Glucose 85 D, Calcium 8.1 L I & O for Last 24 hours: Intake & Output 09/1907/31/21 08/01/21 08/02/21 23:59 23:59 23:59 23:59 Intake Total 0 / 0 820 / 820 600 / 600 Output Total 0 / 0 Balance 0 / 0 820 / 820 600 / 600 Weight 211 lb 3.2 oz 211 lb 3.21 oz 218 lb 7 oz 214 lb 5 oz - Constitutional no acute distress - *Routine HEENT Exam Head: Present: normocephalic Eye: Present: EOMI ENT: Present: mucous membranes moist - *Routine Neck Exam Present: trachea midline. Absent: tracheal deviation - *Routine Respiratory Exam Present: decreased breath sounds. Absent: accessory muscle use - *Routine Cardiovascular Exam Present: RRR - *Routine Abdominal Exam Present: soft, normoactive bowel sounds. Absent: tenderness, firm - *Routine Extremities Exam Present: amputation. Absent: cyanosis, clubbing Comments: [place] intact R AKA - *Routine Skin Exam Present: dry, wounds. Absent: cyanosis, erythema Comments: [place] intact R AKA - *Routine Neurological Exam Present: alert, altered mental status. Absent: motor deficit - Routine Psychiatric Exam Present: cooperative. Absent: normal affect, normal thought process Assessment and Plan (1) Lower GI bleed Status: Acute Category: Medical Code(s): K92.2 - Gastrointestinal hemorrhage, unspecified (2) Obesity (BMI 30-39.9) Status: Acute Category: Medical Code(s): E66.9 - Obesity, unspecified (3) Anemia Status: Acute Qualifiers: Anemia type: unspecified type Qualified Code(s): D64.9 - Anemia, unspecified Category: Medical Code(s): D64.9 - Anemia, unspecified (4) CAD (coronary artery disease) Status: Acute Qualifiers: Coronary Disease-Associated Artery/Lesion type: [place] artery [place] vs. transplanted heart: [place] heart Associated angina: without angina Qualified Code(s): I25.10 - Atherosclerotic heart disease of [place] coronary artery without angina pectoris Category: Medical Code(s): I25.10 - Atherosclerotic heart disease of [place] coronary artery without angina pectoris (5) Dementia Status: Acute Qualifiers: Dementia type: unspecified type Dementia behavioral disturbance: without behavioral disturbance Qualified Code(s): F03.90 - Unspecified dementia without behavioral disturbance Category: Medical Code(s): F03.90 - Unspecified dementia without behavioral disturbance (6) Proctocolitis Status: Acute Category: Medical Code
--- NOTE | 2021-08-02 11:17 | DIET.NUTRFU ---
Pt diet has been advanced to bland and chopped meats have been added to match [facility] diet. Pt with 75% PO intake at breakfast. Will continue to monitor.
[2021-08-02 12:43] LABS: POC Glucose,Bedside 164 (70-110)
[2021-08-02 17:28] LABS: Hematocrit 28.6 % (37.0-47.0)
[2021-08-02 17:41] LABS: Hemoglobin 9.4 g/dL (12.2-16.2)
--- NOTE | 2021-08-02 18:38 | PC.NURSE ---
Pt has screamed majority of this shift. Pt is not easily redirected. Blood transfusion successful, pt had no s/s of blood transfusion reaction. Pt had a full bed bath this shift, new dressing applied to buttocks. Heel protector placed on left heel d/t open area. No other acute changes or complaints, will continue to monitor.
[2021-08-02 19:02] LABS: POC Glucose,Bedside 138 (70-110)
[2021-08-02 21:48] LABS: POC Glucose,Bedside 165 (70-110)
[2021-08-03] VITALS: BP 158/85; PULSE 92; RESP 12; TEMP 36.9; O2SAT 94
[2021-08-03 04:00] VITALS: BP 129/76; PULSE 84; RESP 18; O2SAT 92
--- NOTE | 2021-08-03 04:02 | PC.NURSE ---
pt has rested quietly majority of the shift, has been turned Q2, has not had any complaints of pain, has not had any bowel movements as of this time, has remained on room air with no complaints of SOA
[2021-08-03 05:01] VITALS: BMI 37.8
[2021-08-03 05:34] LABS: POC Glucose,Bedside 135 (70-110)
--- NOTE | 2021-08-03 06:41 | HMH.GSPN ---
Subjective Narrative: The patient is currently resting. Per nursing, she has had no evidence of further blood per rectum. Progress Note: A&P (1) Lower GI bleed Status: Acute Assessment and plan: No sign of recurrent hemorrhage status post clip placement at site of anorectal mucosal tear. Follow-up labs Likely discharge soon with outpatient follow-up (2) Obesity (BMI 30-39.9) Status: Acute (3) Anemia Status: Acute (4) CAD (coronary artery disease) Status: Acute (5) Dementia Status: Acute (6) Proctocolitis Status: Acute (7) S/P AKA (above knee amputation) Status: Acute (8) Diabetes Status: Acute (9) Rectal bleeding Status: Acute Exam Vital signs and Labs for Last 24 Hours: Temp Pulse Resp BP Pulse Ox 98.4 F 84 18 129/76 92 L 08/03/21 00:00 08/03/21 04:00 08/03/21 04:00 08/03/21 04:00 08/03/21 04:00 Laboratory Results - last 24 hr 07/30/21 20:50: Blood Type A Positive, Antibody Screen Negative, Crossmatch (AHG) See Detail 08/02/21 06:30: WBC 6.1 D, RBC 2.78 L D, Hgb 7.0 L, Hct 22.7 L, MCV 81.5, MCH 25.0 L, MCHC 30.7 L, RDW 18.9 H, Plt Count 273, MPV 8.1, Neut % (Auto) 48.5, Lymph % (Auto) 42.2, [place] % (Auto) 5.8, Eos % (Auto) 2.7, Baso % (Auto) 0.8, Neut # (Auto) 3.0, Lymph # (Auto) 2.6, [place] # (Auto) 0.4, Eos # (Auto) 0.2, Baso # (Auto) 0.1 08/02/21 06:30: Sodium 142, Potassium 3.7, Chloride 111 H, Carbon Dioxide 22, Anion Gap 12.7, BUN 15, Creatinine 0.60 D, Estimated Creat Clear 83, Estimated GFR 99, Est GFR ( Amer) 120 D, Glucose 85 D, Calcium 8.1 L 08/02/21 06:30: Blood Type Confirm A Positive 08/02/21 12:25: POC Glucose 164 H 08/02/21 17:18: Hgb 9.4 L D, Hct 28.6 L 08/02/21 17:37: POC Glucose 138 H 08/02/21 20:19: POC Glucose 165 H 08/03/21 05:11: POC Glucose 135 H I & O for Last 24 hours: Intake & Output 07/31/21 08/01/21 08/02/21 08/03/21 11:59 11:59 11:59 11:59 Intake Total 0 / 0 700 / 700 720 / 720 1100 / 1100 Output Total 0 / 0 Balance 0 / 0 700 / 700 720 / 720 1100 / 1100 Weight 211 lb 3.21 oz 218 lb 7 oz 214 lb 5 oz 221 lb 14.4 oz - Constitutional no acute distress - *Routine Respiratory Exam Absent: respiratory distress - *Routine Cardiovascular Exam Absent: tachycardia - *Routine Abdominal Exam Present: obese
[2021-08-03 07:07] LABS: Basophils # 0.1 K/mm3 (0-0.2); Eosinophils # 0.1 K/mm3 (0.0-0.4); Eosinophils % 1.8 % (0.1-12.0); Hematocrit 27.3 % (37.0-47.0); Hemoglobin 8.6 g/dL (12.2-16.2); Lymphocytes # 1.7 K/mm3 (0.7-4.5); Mean Corpuscular HGB Conc 31.7 g/dL (31.8-35.4); Mean Corpuscular Hemoglobin 26.3 pg (27.0-31.2); Mean Corpuscular Volume 82.9 fl (81-99); Mean Platelet Volume 7.6 fl (7.4-10.4); Monocytes # 0.3 K/mm3 (0.1-1.0); Monocytes % 5.3 % (1.7-9.3); Neutrophils # 3.8 K/mm3 (1.8-7.8); Neutrophils % 63.8 % (37.0-80.0); Platelet Count 212 K/mm3 (142-424); Red Blood Count 3.29 M/mm3 (4.20-5.40); Red Cell Distribution Width 18.8 % (11.5-17.5)
[2021-08-03 07:20] LABS: Anion Gap 10.6 mEq/L (5-15); Blood Urea Nitrogen 9 mg/dl (7-17); Calcium 7.9 mg/dl (8.4-10.2); Carbon Dioxide 23 mmol/L (22.0-30.0); Chloride 113 mmol/L (98-107); Creatinine Clearance Estimated 86 mL/min (50-200); Estimated Glomerular Filt Rate 99 ml/min (>60); GFR (African American) 120 ML/MIN (>60); Glucose 125 mg/dl (74-100); Potassium 3.6 mmoL/L (3.5-5.1); Sodium 143 mmol/L (136-145)
[2021-08-03 07:25] VITALS: BP 140/68; PULSE 80; RESP 19; TEMP 36.6; O2SAT 97
[2021-08-03 08:25] VITALS: O2SAT 97
[2021-08-03 08:52] LABS: Coronavirus 19, PCR Not Detected (NotDetected); Influenza A, PCR Not Detected (NotDetected); Influenza B, PCR Not Detected (NotDetected)
--- NOTE | 2021-08-03 09:36 | HMH.DCSUM ---
General - General Admission date:: 07/30/21 Discharge date: 08/03/21 HPI HPI: this patient presented to the ed- ED PER [facility] SENT FROM [facility] FOR EVAL DUE TO RECTAL BLEEDING WITH 4 BLOODY BOWEL MOVEMENTS TODAY PT CONFUSED WHICH IS PT'S NORMAL MS. PT DENIES ANY C/O AT PRESENT The patient has severe dementia and is mainly unable to give any history herself. She is transferred from [facility] with report that she has had 4 episodes of rectal bleeding today. pt was admitted with gi bleed for eval Hospital Course Hospital Course: The patient has severe dementia and is mainly unable to give any history herself. She is transferred from [facility] with report that she has had 4 episodes of rectal bleeding today. pt was admitted with gi bleed for eval 07/30/21 Abd?Pelvis CT: FINDINGS: Lungs: Areas of infiltrate, atelectasis or scar at both lung bases, left greater than right. Small calcified granuloma noted within the left posterior costophrenic angle. There is pleural thickening noted at the left lung base. Coronary artery calcification identified within the coronary arteries. Liver: The liver is normal in size and attenuation. No intrahepatic biliary dilitation. Gallbladder and bile ducts: Cholecystectomy has been performed. No evidence of extrahepatic biliary dilatation. Pancreas: Normal. No ductal dilation. Spleen: Normal. No splenomegaly. Granulomatous calcifications are noted. Adrenal glands: Normal. No mass. Kidneys and ureters: Normal. No hydronephrosis. Stomach and bowel: Some thickening of the wall of the rectal vault. The possibility of inflammatory disease involving the rectum and anus is considered. This would be better assessed by direct visualization. There is diffuse fecal retention throughout the colon. The stomach and small bowel appear unremarkable. Small hiatal hernia noted above the gastroesophageal junction. Appendix: Unremarkable. Intraperitoneal space: Unremarkable. No free air. No significant fluid collection. Vasculature: Atheromatous arterial calcification identified. No abdominal aortic aneurysm. Lymph nodes: Unremarkable. No enlarged lymph nodes. Urinary bladder: Unremarkable as visualized. Reproductive: Calcific myometrial changes would suggest the presence of small internal fibroids. The uterus does not appear enlarged. No evidence of adnexal mass. Bones/joints: Degenerative changes of the lower lumbar spine. No acute fracture. Soft tissues: Unremarkable. IMPRESSION: 1. There is some thickening of the rectal vault and the region of the anus. The possibility of inflammatory disease involving the rectum and anus is considered. This would be better assessed by direct visualization. No evidence of intestinal obstruction. 2. Area of infiltrate, atelectasis, or scar at the lung bases, greater on the left. 3. Cholecystectomy has been performed. Electronically signed by Damon Dumont MD 07/31/21 EGD: Impression: 1. Bile reflux with linear reactive gastropathy Plan: There was no source of acute GI bleeding. I suspect that this is a lower GI tract source of overt bleeding and possibly proctocolitis or diverticular hemorrhage. Additionally, this could be malignant rectal mass. I would recommend colonoscopy as inpatient. I will request perform tomorrow if possible. 08/01/21 Colonoscopy: Findings:: Ascending colon polyp Transverse colon ridge polyp Large amount of blood clots within the rectum Anorectal mucosal tear with active bleeding, hemostasis achieved with Hemoclip deployment Hemoglobin was 7.0, she received 2 units of packed red blood cells, today Hemoglobin 9.4 and no further blood visible. 66-year-old female patient sitting up to the side of the bed eating breakfast pleasantly confused, she denies any distress or pain during the night. Nursing denies any visible blood in bowel movements. Dis
[2021-08-03 11:42] LABS: POC Glucose,Bedside 182 (70-110)
[2021-08-03 12:00] VITALS: BP 164/70; PULSE 78; RESP 18; TEMP 36.8; O2SAT 94
--- NOTE | 2021-08-03 12:55 | PC.NURSE ---
Pt. left unit via Stretcher with EMS staff.
--- NOTE | 2021-08-03 13:05 | PC.NURSE ---
report called to Aimee at [facility]. Nurse v/u.
== END 2021-08-03 13:00 | disposition home or self-care (01) | DRG 378 ==
LOC: ER 20:37 → 2ND 22:21
PROVIDERS: Emergency Medicine; Internal Medicine Gastroenterology; Nurse Practitioner Family; Surgery; Admitting Provider Emergency Medicine; Emergency Provider Emergency Medicine; PCP Family Medicine; Visit Provider Emergency Medicine
PROC: 0DJ08ZZ Inspection of Upper Intestinal Tract, Via Natural or Artificial Opening Endoscopic (ICD-10-PCS; CPT 43235; principal; 2021-07-31 14:00)
PROC: 0DJD8ZZ Inspection of Lower Intestinal Tract, Via Natural or Artificial Opening Endoscopic (ICD-10-PCS; principal; 2021-08-01 08:00)
DX: K62.5 Hemorrhage of anus and rectum (principal); D62 Acute posthemorrhagic anemia; E11.9 Type 2 diabetes mellitus without complications; I25.10 Atherosclerotic heart disease of native coronary artery without angina pectoris; Z20.822 Contact with and (suspected) exposure to COVID-19; Z79.4 Long term (current) use of insulin; S31.831A Laceration without foreign body of anus, initial encounter; F03.90 Unspecified dementia, unspecified severity, without behavioral disturbance, psychotic disturbance, mood disturbance, and anxiety; E78.5 Hyperlipidemia, unspecified; M19.90 Unspecified osteoarthritis, unspecified site; E66.9 Obesity, unspecified; Z68.37 Body mass index [BMI] 37.0-37.9, adult; K31.9 Disease of stomach and duodenum, unspecified; Z89.611 Acquired absence of right leg above knee
CPT/HCPCS: 45382; 45385; 43239; 36415; 74177; 80048; 80053; 82962; 85014; 85018; 85025; 85610; 85730; 86850; 88305; 88342; 96365; 99284; C9803; G0378; P9016; Q9967; U0003; U0005

== ENCOUNTER 2022-05-04 11:02 | Observation (INO) | payer MEDICARE, MEDICAID, SELFPAY ==
[2022-05-04] VITALS (15 sets, daily range): BP systolic 111–135; BP diastolic 58–89; PULSE 69–80; RESP 14–24; TEMP 36.7–37.2; O2SAT 94–100; BMI 36.6; BMI 40.3
--- NOTE | 2022-05-04 11:02 | ECG_ITS ---
APPROVED REPORT Exam: Resting ECG HR:74 bpm ECG Measurements Heart Rate 74 AXES AL 187 P 86 QRSd 85 QRS 4 QT 375 T 52 QTc 403 Conclusion SINUS RHYTHM LOW QRS VOLTAGE IN PRECORDIAL LEADS [QRS DEFLECTION < 1.0 mV IN CHEST LEADS] BORDERLINE ECG UNCONFIRMED REPORT Electronically signed by : Isaac Crowe MD 05/04/2022 17:23:20
--- NOTE | 2022-05-04 11:09 | HMH.EDGENADL ---
ED Disposition Clinical Impression: Unstable angina, TIA (transient ischemic attack) Disposition: Admitted as Observation Condition on Discharge: Fair Referrals: Provider,Referral, [Referring] - - Critical Care Critical Care Time: No Attestation: On 05/04/22, the high probability of a clinically significant, sudden or life threatening deterioration of the following system(s) required my full and direct attention, intervention and personal management. The time I documented below is in addition to time spent performing reported procedures but includes the following listed in this critical care notation. Medical Decision Making - Ervin Inquiry Pt receiving controlled substance: No Vital Signs: 05/04/22 11:04 05/04/22 11:34 05/04/22 12:15 Temperature 98.4 F Temperature Source Oral Pulse Rate 77 69 73 Pulse Rate [Radial] 77 Respiratory Rate 20 21 20 Blood Pressure 128/75 127/70 135/74 Blood Pressure [Right Arm] 128/75 Blood Pressure Mean [Right Arm] 92 Blood Pressure Position [Right Arm] Sitting 02 Sat by Pulse Oximetry 97 98 100 Oxygen Delivery Method Room Air Room Air - Lab Data Lab Results 05/04/22 11:30: WBC 8.2, RBC 4.49, Hgb 12.4, Hct 38.1, MCV 84.9, MCH 27.7, MCHC 32.7, RDW 16.5, Plt Count 232, MPV 7.3 L, Neut % (Auto) 68.0, Lymph % (Auto) 24.8, [place] % (Auto) 5.2, Eos % (Auto) 2.1, Baso % (Auto) 4.5 H, Neut # (Auto) 5.6, Lymph # (Auto) 2.0, [place] # (Auto) 0.4, Eos # (Auto) 0.2, Baso # (Auto) 0.4 H 05/04/22 11:30: Sodium 138, Potassium 4.3, Chloride 101, Carbon Dioxide 30, Anion Gap 11.3, BUN 17, Creatinine 0.60, Estimated Creat Clear 76, Estimated GFR 99, Est GFR ( Amer) 120, Glucose 240 H, Calcium 9.1, Troponin I < 0.01 Result diagrams: 05/04/22 11:30 05/04/22 11:30 Orders (Tests/Meds): ED MEDICATIONS Generic Name Dose Route Start Last Admin Trade Name Freq PRN Reason Stop Dose Admin Isosorbide Mononitrate 30 mg 05/04/22 13:45 05/04/22 13:51 Isosorbide [place] 30mg Tab.Er.24h PO 06/03/22 13:44 30 mg DAILY DARY Administration ORDERS Category Date Time Status Consult to Cardiology [CONS] Routine Cons 05/04/22 13:26 Active Rapid PCR Covid and Flu A/B Stat Lab 05/04/22 14:09 Received Troponin I Q3H Lab 05/04/22 14:20 Received Troponin I Q3H Lab 05/04/22 17:15 Ordered - Radiology Data #1 Image(s): Chest Image Reviewed: Yes I have reviewed radiologist's interpretation Procedure(s): XR chest portable Accession Number(s): [id number] cc: Keith Bravo ; Endy Segura MD~ FINAL REPORT CLINICAL HISTORY: chest pain FINDINGS: A single portable view of the chest was obtained. The heart size and pulmonary vascularity are within normal limits. The mediastinum is within normal limits. There is mild atelectasis or scarring in the left lung base. The bony thorax is intact. IMPRESSION: Mild atelectasis or scarring in the left lung base. Reviewed, Interpreted and Dictated by Endy Segura III, MD Transcribed by Dacia Hays Authenticated and [facility] - CT Data CT Scan: Head Time Received: 14:[address] Reviewed: Yes: I have viewed the radiologist's interpretation Findings Narrative: Procedure(s): CT head/brain wo con Accession Number(s): [id number] cc: Keith Bravo ; Endy Segura MD; Wesley Diaz MD~ FINAL REPORT CLINICAL HISTORY: speech difficulty COMPARISON: May 21, 2021 FINDINGS: Axial images of the head were obtained without contrast. Coronal reformatted images were also obtained. This study was performed with techniques to keep radiation doses as low as reasonably achievable (ALARA). Individualized dose reduction techniques using automated exposure control or adjustment of mA and/or kV according to the of encephalomalacia consistent with prior infarcts. size were employed. There is generalized age
--- NOTE | 2022-05-04 11:37 | PC.NURSE ---
at bedside drawing blood
--- NOTE | 2022-05-04 11:56 | PC.NURSE ---
FAMILY AT BEDSIDE, PT WITHOUT NEEDS OR CONCERNS
[2022-05-04 11:57] LABS: Basophils # 0.4 K/mm3 (0-0.2); Basophils % 4.5 % (0.1-2.0); Eosinophils # 0.2 K/mm3 (0.0-0.4); Eosinophils % 2.1 % (0.1-12.0); Hematocrit 38.1 % (37.0-47.0); Hemoglobin 12.4 g/dL (12.2-16.2); Lymphocytes % 24.8 % (10-50); Mean Corpuscular HGB Conc 32.7 g/dL (31.8-35.4); Mean Corpuscular Hemoglobin 27.7 pg (27.0-31.2); Mean Corpuscular Volume 84.9 fl (81-99); Mean Platelet Volume 7.3 fl (7.4-10.4); Monocytes # 0.4 K/mm3 (0.1-1.0); Monocytes % 5.2 % (1.7-9.3); Neutrophils # 5.6 K/mm3 (1.8-7.8); Platelet Count 232 K/mm3 (142-424); Red Blood Count 4.49 M/mm3 (4.20-5.40); Red Cell Distribution Width 16.5 % (11.5-17.5); White Blood Count 8.2 K/mm3 (4.8-10.8)
[2022-05-04 11:58] LABS: Anion Gap 11.3 mEq/L (5-15); Blood Urea Nitrogen 17 mg/dl (7-17); Calcium 9.1 mg/dl (8.4-10.2); Carbon Dioxide 30 mmol/L (22.0-30.0); Chloride 101 mmol/L (98-107); Creatinine Clearance Estimated 76 mL/min (50-200); Estimated Glomerular Filt Rate 99 ml/min (>60); GFR (African American) 120 ML/MIN (>60); Glucose 240 mg/dl (74-100); Potassium 4.3 mmoL/L (3.5-5.1); Sodium 138 mmol/L (136-145)
[2022-05-04 12:15] LABS: Troponin I < 0.01 ng/ml (0.00-0.034)
--- NOTE | 2022-05-04 12:43 | CT_ITS ---
FINAL REPORT CLINICAL HISTORY: speech difficulty COMPARISON: May 21, 2021 FINDINGS: Axial images of the head were obtained without contrast. Coronal reformatted images were also obtained. This study was performed with techniques to keep radiation doses as low as reasonably achievable (ALARA). Individualized dose reduction techniques using automated exposure control or adjustment of mA and/or kV according to the of encephalomalacia consistent with prior infarcts. size were employed. There is generalized age appropriate atrophy. There is no evidence of intracranial hemorrhage or mass. The ventricular size is within normal limits. There is no evidence of shift of the midline structures. No skull abnormality is seen on the bone window images. There are left parietal and occipital areas of encephalomalacia consistent with prior infarcts. There is a stable chronic right lacunar infarct. IMPRESSION: No acute intracranial abnormality. Occipital areas of encephalomalacia consistent with prior infarcts. Stable chronic right lacunar infarct. Reviewed, Interpreted and Dictated by Endy Segura III, MD Transcribed by Dacia Hays Authenticated and . [facility]
--- NOTE | 2022-05-04 12:45 | PC.NURSE ---
pt's sister came to nurses station states pt is having difficulty finding her words pt with hx of cvas and has hx of same however symptoms are worse today
--- NOTE | 2022-05-04 13:35 | PC.NURSE ---
dr juan spoke to dr staley
--- NOTE | 2022-05-04 14:07 | HMH.CNCARD ---
History of Present Illness Consult date: 05/04/22 Requesting physician: Wesley Diaz Consult reason: chest pain Chief complaint: chest pain History of present illness: This is a 67-year-old white female who was brought into the hospital via ambulance for the [facility] secondary to chest pain. The patient states that she had sudden onset of chest pain this morning. She is unable to describe what the chest pain feels like to me. She reports that it lasted anywhere from 45 minutes to an hour and a half. She was given 3 nitroglycerin at the [facility] which did resolve her pain. She is currently chest pain free. The patient states that she was short of breath with the chest pain. It did not radiate but stayed right in the center of her chest. Reviewing her note from the emergency department, she reported that her hands were also hurting when she had chest pain and they felt like magnets were in them. She did not describe that during my examination but she is very hard of hearing and is a very poor historian having trouble telling me everything that was going on. The patient does have a history of coronary artery disease with 2 stents placed in the past. Her sister reports that she does not have chest pain frequently so this was new for her. She denies any fever, chills, nausea, vomiting, diarrhea, PND or orthopnea. [facility] History I have reviewed the patient's past medical history: Yes Medical History: Reports:: Congestive Heart Failure, Coronary Artery Disease, Cerebrovascular Accident, Diabetes Mellitus Type 2, Hyperlipidemia, Hypertension, Peripheral Vascular Disease Denies:: Cancer, Diabetes Mellitus Type 1, MRSA, Seizures *Have you ever received a pneumonia vaccine?: Yes *Have you received a flu vaccine this season?: Yes Other Medical History: Reports: Arthritis Amputation: Yes (Right BKA) Fractures: No - *Social History Smoking Status: Smoker, status unknown Alcohol Intake: never Substance Use Type: denies use *Occupational Status:: disabled *Travel in the last 8 weeks: None Family Hx:: Unable to obtain Meds Home Medications Medication Instructions Recorded Confirmed Type Aspirin [Aspirin 81mg EC Tab] 81 mg PO DAILY 07/30/21 08/25/21 History Atorvastatin Calcium [Lipitor 80mg 80 mg PO HS 07/30/21 08/25/21 History Tab] Clopidogrel Bisulfate [Clopidogrel 75 mg PO DAILY 07/30/21 08/25/21 History 75mg Tab] Furosemide [Furosemide 40MG tAB*] 40 mg PO DAILY 07/30/21 08/25/21 History Gabapentin 300 mg PO BID 07/30/21 08/25/21 History Insulin Glargine,Hum.rec.anlog 20 unit SQ DAILY 07/30/21 08/25/21 History [Lantus Insulin 100units/mL 10mL vial] Metoprolol Tartrate 50 mg PO BID 07/30/21 08/25/21 History Mirtazapine 45 mg PO HS 07/30/21 08/25/21 History OLANZapine [Zyprexa] 2.5 mg PO BID 07/30/21 08/25/21 History Pantoprazole Sodium 40 mg PO DAILY 07/30/21 08/25/21 History Pramipexole Di-HCl [Pramipexole 1 mg PO HS 07/30/21 08/25/21 History Dihydrochloride] Quetiapine Fumarate 50 mg PO QID 07/30/21 08/25/21 History lisinopriL [Lisinopril] 5 mg PO DAILY 07/30/21 08/25/21 History methocarbamoL [Methocarbamol 500mg 500 mg PO QID 07/30/21 08/25/21 History Tablet] mycophenolate mofetiL 500 mg PO BID 07/30/21 08/25/21 History [Mycophenolate Mofetil] predniSONE [Deltasone 10mg tablet] 10 mg PO DAILY 07/30/21 08/25/21 History Docusate Sodium [Docusate Sodium 100 mg PO DAILYP PRN 07/31/21 08/25/21 History 100mg Cap] Melatonin 3 mg PO HS 07/31/21 08/25/21 History Multivitamin 1 tab PO DAILY 07/31/21 08/25/21 History Nitroglycerin [Nitrostat 0.4mg SL 0.4 mg SL Q5MINP PRN 07/31/21 08/25/21 History Tablet] bisacodyL [Dulcolax 10mg Supp] 10 mg RC DAILYP PRN 07/31/21 08/25/21 History polyethylene glycoL 3350 [Miralax 17 gm PO DAILY 07/31/21 08/25/21 History 17gm Packet] Allergies Allergy/AdvReac Type Severity Reaction Status Date / Time iodine Allergy Verified 08/25/21 09:53
[2022-05-04 14:16] LABS: Coronavirus 19, PCR Not Detected (NotDetected); Influenza A, PCR Not Detected (NotDetected); Influenza B, PCR Not Detected (NotDetected)
--- NOTE | 2022-05-04 14:43 | PC.NURSE ---
has been called. He is in a room he will call us back.
--- NOTE | 2022-05-04 14:51 | PC.NURSE ---
on the phone with
--- NOTE | 2022-05-04 14:52 | PC.NURSE ---
Care management has been called. They will give us a call back
[2022-05-04 15:01] LABS: Troponin I < 0.01 ng/ml (0.00-0.034)
--- NOTE | 2022-05-04 15:34 | PC.NURSE ---
attempted to call report no answer
--- NOTE | 2022-05-04 15:53 | PC.NURSE ---
report called to floor
--- NOTE | 2022-05-04 18:17 | PC.NURSE ---
aox4, able to make needs known to staff. does not require o2 support. has denied chest pain since arriving to floor.
[2022-05-04 18:37] LABS: Troponin I < 0.01 ng/ml (0.00-0.034)
[2022-05-05] VITALS: BP 100/70; PULSE 69; PULSE 70; RESP 18; TEMP 36.6; O2SAT 94
[2022-05-05 04:00] VITALS: BP 121/58; PULSE 65; RESP 18; TEMP 37.3; O2SAT 100
--- NOTE | 2022-05-05 04:41 | PC.NURSE ---
Patient rested interminably throughout shift. Patient states she has had no chest pain throughout shift. Patient is alert and oriented x3 however she does have trouble finding words r/t HX of CVA however patient is able to make needs known to staff.
[2022-05-05 05:14] VITALS: BMI 40.0
[2022-05-05 06:06] LABS: POC Glucose,Bedside 234 (70-110)
[2022-05-05 08:00] VITALS: BP 107/50; PULSE 74; PULSE 78; RESP 22; TEMP 36.8; O2SAT 93
--- NOTE | 2022-05-05 08:46 | HMH.PHAVTE ---
[facility] Pharmacy VTE Monitoring - Patient Demographics Admission date: 05/05/22 Report Date: 05/05/22 Time: 08:46 Allergies/Adverse Reactions: Patient Allergies iodine Allergy (Verified 08/25/21 09:53) Height: 1.65 m Weight: 109.032 kg Patient Problems: Current Active Problems CAD (coronary artery disease) (Chronic) S/P AKA (above knee amputation) (Acute) Diabetes (Chronic) Unstable angina (Acute) HTN (hypertension) (Chronic) HLD (hyperlipidemia) (Chronic) Angina pectoris (Acute) TIA (transient ischemic attack) (Acute) - VTE Risk Labs: VTE Related Lab Results Hgb 12.4 g/dL (12.2-16.2) 05/04/22 11:30 Hct 38.1 % (37.0-47.0) 05/04/22 11:30 Plt Count 232 K/mm3 (142-424) 05/04/22 11:30 BUN 17 mg/dl (7-17) 05/04/22 11:30 Creatinine 0.60 mg/dl (0.52-1.04) 05/04/22 11:30 Estimated Creat Clear 76 mL/min (50-200) 05/04/22 11:30 Clinical Trial Participant: No - Prophylaxis VTE Prophylaxis Ordered?: Yes Types of VTE Prophylaxis: TEDS Knee High
--- NOTE | 2022-05-05 09:10 | HMH.PHAINT ---
home medication list verified using list from [facility]
[2022-05-05 11:35] LABS: POC Glucose,Bedside 282 (70-110)
[2022-05-05 12:00] VITALS: BP 137/65; PULSE 78; PULSE 95; RESP 20; TEMP 36.3; O2SAT 94
--- NOTE | 2022-05-05 14:19 | HMH.HPDC ---
General - General Admission date:: 05/04/22 Discharge date: 05/05/22 *Admission Date: 05/05/22 *Chief complaint: chest pain *History of present illness: Patient is a 67-year-old white female, [facility] resident, who presented to the emergency room with chest pain. She is a very marginal historian. By history she has coronary disease and has had 2 stents placed [facility] in [place]. 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 She has poorly controlled diabetes with an A1c of 10 and is status post right below the knee amputation. CT of the brain showed no acute process. There was extensive encephalomalacia in the occipital regions, and a stable right sided lacunar infarct. Her troponins have been negative x3. Cardiology was consulted, they suggested adding Imdur 2 mg daily to her regimen and uptitrating her metoprolol to 75 mg twice daily. Outpatient follow-up was recommended. On the morning of her exam she was experiencing no chest pain. He felt ready to go home. [facility] History Medical History: Reports:: Congestive Heart Failure, Coronary Artery Disease, Cerebrovascular Accident, Diabetes Mellitus Type 2, Hyperlipidemia, Hypertension, Peripheral Vascular Disease Denies:: Cancer, Diabetes Mellitus Type 1, MRSA, Seizures *Have you ever received a pneumonia vaccine?: Yes *Have you received a flu vaccine this season?: Yes Other Medical History: Reports: Arthritis Amputation: Yes (Right BKA) Fractures: No - *Social History Smoking Status: Smoker, status unknown Alcohol Intake: never Substance Use Type: denies use *Occupational Status:: retired *Travel in the last 8 weeks: None Family Hx:: Unable to obtain Review of Systems - Constitutional Reports lack of energy - Eyes Reports change in vision - ENT Reports abnormal hearing - *Cardiovascular Reports chest pain - *Respiratory Denies chest congestion - *Gastrointestinal Denies abdominal pain - *Genitourinary Denies painful urination - *Musculoskeletal Reports muscle weakness - Integumentary/Breasts Denies yellowing of the skin - *Neurologic Reports abnormal speech, Reports weakness - Psychiatric Denies behavioral changes - Endocrine Denies cold intolerance, Denies excessive sweating, Denies increased hunger - Hematologic/Lymphatic Denies easy bleeding, Denies easy bruising - Allergic/Immunologic Denies hives Exam Vital signs and Labs for Last 24 Hours: Temp Pulse Resp BP Pulse Ox 98.3 F 74 22 107/50 L 93 L 05/05/22 08:00 05/05/22 08:00 05/05/22 08:00 05/05/22 08:00 05/05/22 08:00 Laboratory Results - last 24 hr 05/04/22 14:09: SARS-CoV-2 (PCR) Not detected, Influenza A Untype (PCR) Not detected, Influenza Type B (PCR) Not detected 05/04/22 14:20: Troponin I < 0.01 05/04/22 17:58: Troponin I < 0.01 05/05/22 05:47: POC Glucose 234 H 05/05/22 11:27: POC Glucose 282 H I & O for Last 24 hours: Intake & Output 05/02/22 05/03/22 05/04/22 05/05/22 23:59 23:59 23:59 23:59 Intake Total 240 / 240 480 / 480 Balance 240 / 240 480 / 480 Weight 242 lb 3 oz 240 lb 6 oz - Constitutional no acute distress, obese, chronically ill appearing, cooperative - *Routine HEENT Exam Head: Present: normocephalic Eye: Present: EOMI, PERRL ENT: Present: mucous membranes moist - *Routine Neck Exam Present: supple. Absent: lymphadenopathy - *Routine Respiratory Exam Present: CTA bilaterally - *Routine Cardiovascular Exam Present: RRR - *Routine Abdominal Exam Present: soft, normoactive bowel sounds. Absent: tenderness - *Routine Rectal Exam Rectal:: deferred - *Routine Genitalia Exam Genitalia:: deferred - *Routine Extremities Exam Present: amputation - *Routine Skin Exam Present: warm. Absent: rash - *Routine Neurological Exam Present: alert, oriented X3, vision grossly intact, hearing grossly intact. Absent: altered mental stat
--- NOTE | 2022-05-05 15:21 | PC.NURSE ---
pt is being discahrged back to the retirement. Report called to Selena,IV discontinued and Heart monitor removed. pt tolerated well. awaiting transport
[2022-05-05 16:00] VITALS: BP 114/58; PULSE 79; RESP 22; TEMP 37.2; O2SAT 93
--- NOTE | 2022-05-05 17:33 | PC.NURSE ---
pt has left the unit via EMS. took all belongings with her. notified [facility] of pt transfer
--- NOTE | 2022-05-07 14:21 | CARE MANAGER ---
custodial states patient is doing well since discharged from hospital and has been up and about. Denies any questions.
== END 2022-05-05 17:30 ==
LOC: ER 13:39 → 2ND 15:24
PROVIDERS: Admitting Provider Family Medicine; Emergency Provider Emergency Medicine; PCP Family Medicine; Visit Provider Family Medicine
DX: I25.118 Atherosclerotic heart disease of native coronary artery with other forms of angina pectoris (principal); E11.9 Type 2 diabetes mellitus without complications; Z79.4 Long term (current) use of insulin; Z79.899 Other long term (current) drug therapy; G45.8 Other transient cerebral ischemic attacks and related syndromes; R07.9 Chest pain, unspecified; I11.0 Hypertensive heart disease with heart failure; I50.9 Heart failure, unspecified; Z20.822 Contact with and (suspected) exposure to COVID-19
CPT/HCPCS: G0378; 70450; 71045; 80048; 82962; 84484; 85025; 93005; 99285; C9803; U0003; U0005

== ENCOUNTER → 2022-05-29 07:28 | Outpatient (CLI) | payer MEDICARE, MEDICAID, SELFPAY ==
--- NOTE | 2022-05-29 07:33 | NM_ITS ---
APPROVED REPORT Exam: Nuclear Stress Test Indication: Chest pain, CAD, HTN, DM, Former tobacco use, Family history Patient Location: Outpatient Stress Tech: Sari Burch MD Tech:Anjelica Martinez, ARRT, RT (R)(N) Ht: 5 ft 3 in Wt: 240 lbs Bra Size: DDD HR: 62 bpm BP: 165/78 mmHg BSA: 2.09 m2 TID: 0.95 BMI: 42.5 History: Chest pain, CAD, HTN, DM, Former tobacco use, Family history Procedure: Patient received a 0.4 mg of intravenous Lexiscan, resting heart rate 62 bpm, resting blood pressure 165/78 mmHg, with Lexiscan maximum heart rate achived was 70 bpm which is Less than 85 % of the maximum predicted heart rate and blood pressure was 183/91 mmHg. With Lexiscan, patient denied any complaint of chest pain. Electrocardiogram Resting electrocardiogram shows sinus rhythm anteroseptal infarct age-indeterminate, with Lexiscan there is less than 1.[address] segment depression noted from the baseline EKG. The EKG portion of the Lexiscan is nondiagnostic. Cardiac Stress and Resting SPECT Images: Cardiac Stress and Resting SPECT images were obtained using technetium 99m Myoview 32.6 mCi stress and 10.56 mCi at rest. Patient from [facility] and [facility] to lay on stomach for prone images. Gated SPECT for analysis of segmental wall motion and calculation of the ejection fraction also done. Cardiac stress and rest SPECT images show reversible ischemia involving the anteroseptal wall, computer derived ejection fraction 48% with no regional wall motion abnormality, right ventricle is normal size and contractility. Conclusion: 1. The EKG portion of the Lexiscan is nondiagnostic. 2. Scintigraphic evidence of reversible ischemia involving the anteroseptal wall, computer derived ejection fraction 48% with no regional wall motion abnormality, right ventricle is normal size and contractility. 3. Abnormal Lexiscan Myoview study. Electronically signed by : Dar Kennedy MD 05/29/2022 21:40:19
--- NOTE | 2022-05-29 07:52 | CA_ITS ---
APPROVED REPORT EXAM: Comprehensive 2D, Doppler, and color-flow Echocardiogram Combine Mechanic: Allyson Mustafa CRT Ht: 5 ft 3 in Wt: 240lbs BSA: 2.09 BP: 128/72 mmHg Indications: Chest Pain, CVA/TIA, Diabetes, Fatigue, CAD, Hyperlipidemia, Hypertension/HDD 2D Dimensions LVOT 1.61 cm (M/F) 1.5-2.5 LA Volume 74.60 mL LA Volume Index 35.70 mL/m2 (M/F) 16-34 M-Mode Dimensions RVDd 2.49 cm (0.9-2.6) LA Diam 3.73 cm (1.9-4.0) LVDd 4.41 cm (3.5-5.7) Ao Diam 3.81 cm (2.0-3.7) LVDs 2.51 cm (3.5-5.7) IVSd 1.49 cm (0.6-1.1) PWd 0.79 cm (0.6-1.1) EF (Teich) 74.50% FS 43.10% EDV (Teich) 88.20 mL ESV (Teich) 22.50 mL LV Diastology E Decel Time 250.00 (160-240 msec) E/A Ratio 0.94 MED E' 7.30 (< 7 cm/sec) MED A' 10.80 cm/s E'/MED E' Ratio 10.05 (>14) LAT E' 6.00 (<10 cm/sec) LAT A' 6.10 cm/s E/LAT E' Ratio 12.23 (>14) Aortic Valve AI PHT 544.00 ms AO Peak GR. 6.60 mmHg Mitral Valve MV E Max Raúl. 73.00 (40-130 cm/s) MV A Velocity 78.00 (40-130 cm/s) E/A Ratio 0.94 MV Decel. Time 250.00 (160-240 ms) MV PHT 73.00 ms Pulmonary Valve PV Peak Velocity 67.00 (50-150 cm/s) Tricuspid Valve TR P. Velocity 287.00 cm/s RAP Estimate 10.00 mmHg RVSP 42.90 mmHg Left Ventricle Technically difficult study because of the patient factors and poor acoustic windows. Left atrium is mildly enlarged, left ventricle normal size mild concentric left ventricle hypertrophy estimated ejection fraction 55% with no regional wall motion abnormality, diastolic parameters are inconclusive. Right Ventricle Right atrium and right ventricle are normal size and contractility. Aortic Valve Aortic valve is thickened and calcified without aortic stenosis or aortic insufficiency. Mitral Valve Mitral valve grossly normal, there is trace mitral regurgitation. Tricuspid Valve Tricuspid grossly normal, there is trace tricuspid regurgitation, tricuspid regurgitation jet velocity is inadequate for calculation of the right ventricular systolic pressure. Pulmonic Valve Pulmonic valve is poorly visualized. Great Vessels Aortic root is normal size. Inferior vena cava is poorly visualized. Pericardium No significant pericardial effusion noted. Conclusion 1. Mildly enlarged left atrium, normal left ventricular size mild concentric left ventricular hypertrophy, estimated ejection fraction 55% with no regional wall motion abnormality, diastolic parameters are inconclusive. 2. Trace mitral and tricuspid regurgitation. 3. No significant pericardial effusion noted. 4. Inferior vena cava is poorly visualized. Electronically signed by : Dar Kennedy MD 05/29/2022 21:31:28
--- NOTE | 2022-05-29 09:15 | HMH.ITSHM ---
Current Home Medications as stated by this patient Jeanette Gary or ocean import representative. []CLOPIDOGREL ATORVASTATIN ASA PREDNISONE METHOCARBAMOL LISINOPRIL BISACODYL QUETIAPINE PRAMIPEXOLE PANTOPRAZOLE OMEGA 3 NITRO MIRTAZAPINE METOPROLOL MELATONIN ISOSORBIDE INSULIN GABAPENTIN FUROSEMIDE DOCUSATE
--- NOTE | 2022-05-29 09:31 | CA_ITS ---
APPROVED REPORT Exam: Pharmacologic Technologist: Sari Cruz, Ht: 5 ft 3 in Wt: 240 lbs BSA: 2.09 m2 HR: 58 bpm BP: 165/78 mmHg Medical History Medications: Lisinopril,,,,, Aspirin,,,,, Metoprolol,,,,, Gabapentin,,,,, Robaxin,,,,, Pantoprazole,,,,, Atorvastatin,,,,, Pramipexole,,,,, INSULIN,,,,, CloPIdogrel,,,,, Prednisone,,,,, Nitroglycerin,,,,, Stress Test Details Test: LEXISCAN Reason for pharmacologic stress test: physical limitation. HR Resting HR: 62 bpm Max Heart Rate (APMHR): 151.041406 bpm Max HR Achieved: 70 bpm Target HR (85% APMHR): 128.397873 bpm % of APMHR: 46.36 Recovery HR: 64 bpm BP Resting BP: 165/78 mmHg Max BP: 183/91 mmHg Recovery BP: 170.0/80.0 mmHg ECG Resting ECG: Sinus ashley, 1* AVB, low voltage QRS, cannot R/O old anteroseptal [place] Clinical Exercise duration: 04:00 min Highest Stage Achieved: Exercise capacity: 1.0 METs Stress ECG Conclusion Symptoms: Mild SOA & stomach discomfort. No CP. Arrhythmias/Ectopy: None ST-T Changes: No significant changes. Conclusion: Unremarkable Lexiscan stress. Myoview images reported separately. Test Summary REST 05:18 . . 62 . 165/ 78 . . Stage 1 . . . . . . . Myoview Injected Stage 1 01:00 . . 62 . . . . Stage 2 01:00 . . 69 . . . . Stage 3 01:00 . . 69 . 149/ 76 . . Stage 4 01:00 . . 67 . 136/ 82 . Stop exercise at 04:00 RECOVERY 01:00 . . 66 . 183/ 91 . . RECOVERY 02:00 . . 66 . 183/ 91 . . RECOVERY 03:00 . . 66 . 182/ 77 . . RECOVERY 04:00 . . 66 . 182/ 77 . . RECOVERY 04:29 . . 64 . 170/ 80 . . Electronically signed by : Dar Kennedy MD 05/29/2022 21:34:55
== END ==
PROVIDERS: PCP Family Medicine; Visit Provider Internal Medicine Cardiovascular Disease
DX: E78.5 Hyperlipidemia, unspecified (principal); I10 Essential (primary) hypertension; I20.8 Other forms of angina pectoris
CPT/HCPCS: 78452; 93017; 93306; A9502; J2785

== ENCOUNTER 2022-06-25 07:24 | Day surgery (SDC) | payer MEDICARE, MEDICAID, SELFPAY ==
[2022-06-25] VITALS (15 sets, daily range): BP systolic 114–167; BP diastolic 44–102; PULSE 60–82; RESP 17–18; TEMP 36.9; O2SAT 95–97; BMI 36.5
--- NOTE | 2022-06-25 | IR_ITS ---
APPROVED REPORT Patient Location: Outpatient Cad Developer: TATYANA Irby RT (R) PROCEDURES Left heart catheterization Left ventriculogram Selective coronary angiogram Drug-eluting stent deployment to the ramus intermedius Drug-eluting stent deployment to the terminal obtuse marginal artery off the circumflex artery INDICATION Coronary artery disease, Recalcitrant angina pectoris despite 2 antianginal medications, Abnormal Myoview Informed consent was obtained prior to the procedure. COMPLICATIONS NONE Estimated Blood Loss: LESS THAN 10 ML TECHNIQUE One percent lidocaine used to anesthetize the right anterior aspect of the wrist. The right radial artery was accessed via the Seldinger technique. A 6 Tamazight sheath was placed in the right radial artery. 2.5 mg of verapamil, 800 mcg of nitroglycerin, 1mg Lidocaine and 5000 U Heparin were given through the arterial sheath. The papa catheter was also used to perform left heart catheterization, left ventriculogram and selective coronary angiogram. At the end the diagnostic angiogram therapeutic heparin was administered giving a therapeutic ACT and the guide catheter was placed in the left main artery followed by a Choice PT extra-support wire being placed in the ramus intermedius. A 2.5 x 18 mm resolute [place] stent was deployed at 22 kit reducing the stenosis to 0%. NOEMY-3 flow was present before and after the procedure. Following this the wire was pulled back and placed into the terminal obtuse marginal artery where NOEMY II flow was present. A 2.25 x 12 mm resolute [place] stent was deployed at 18 kit reducing the severe stenosis to 0%. At the end of the procedure NOEMY II flow improved to NOEMY-3 flow. At the end of the procedure the apparatus was removed the sheath was removed and hemostasis was achieved using TR banding patient was transferred to the postop putting in stable addition ANGIOGRAPHIC RESULTS The left main artery Normal The left anterior descending artery Has proximal 20% stenosis with a mid vessel 30 to 40% concentric stenosis. The circumflex artery Is a large dominant vessel gives rise to a large high ramus intermedius/first obtuse marginal artery. This vessel has a proximal concentric 80% stenosis. The terminal obtuse marginal artery is moderate in size and has a proximal 80 to 90% stenosis accompanied by NOEMY II flow The right coronary artery Is a nondominant vessel and has a stent in the proximal and mid segment which is widely patent with minimal in-stent restenosis The DONG ventriculogram reveals Preserved at 50 to 55% The left ventricular end-diastolic pressure 20 to 25 mmHg IMPRESSION Abnormal Myoview in the anteroseptal region however there were severe angiographic stenoses in the dominant circumflex artery accompanied by NOEMY II flow in the terminal obtuse marginal artery which made this much more likely to be the angina producing vessel rather than the LAD Successful stenting of the ramus intermedius/high first obtuse marginal artery severe disease reduced to 0% with 1 drug-eluting stent Successful stenting of the terminal obtuse marginal artery severe disease reduced to 0% with 1 drug-eluting stent Preserved ejection fraction Moderately elevated LVEDP consistent with diastolic dysfunction PLAN 1. Dual antiplatelet therapy 2. Maximize antianginal medication 3. LDL less than 55 to be achieved with high intensity statin 4. Cardiac rehabilitation 5. Should patient experience recalcitrant angina pectoris I would consider bringing her back to the [facility] and performing FFR in the LAD. Angiographically this stenosis is unimpressive however there is an abnormal Myoview which corresponds to that area. Given
[2022-06-25 08:00] LABS: Basophils % 0.6 % (0.1-2.0); Eosinophils # 0.2 K/mm3 (0.0-0.4); Eosinophils % 2.8 % (0.1-12.0); Hematocrit 37.2 % (37.0-47.0); Hemoglobin 12.2 g/dL (12.2-16.2); Lymphocytes # 2.6 K/mm3 (0.7-4.5); Lymphocytes % 32.6 % (10-50); Mean Corpuscular HGB Conc 32.8 g/dL (31.8-35.4); Mean Corpuscular Hemoglobin 27.7 pg (27.0-31.2); Mean Corpuscular Volume 84.5 fl (81-99); Mean Platelet Volume 7.5 fl (7.4-10.4); Monocytes # 0.4 K/mm3 (0.1-1.0); Monocytes % 5.2 % (1.7-9.3); Neutrophils # 4.7 K/mm3 (1.8-7.8); Neutrophils % 58.9 % (37.0-80.0); Platelet Count 224 K/mm3 (142-424); Red Cell Distribution Width 16.2 % (11.5-17.5); White Blood Count 7.9 K/mm3 (4.8-10.8)
[2022-06-25 08:16] LABS: Anion Gap 8.5 mEq/L (5-15); Blood Urea Nitrogen 10 mg/dl (7-17); Calcium 8.4 mg/dl (8.4-10.2); Carbon Dioxide 27 mmol/L (22.0-30.0); Chloride 109 mmol/L (98-107); Creatinine Clearance Estimated 59 mL/min (50-200); Estimated Glomerular Filt Rate 122 ml/min (>60); GFR (African American) 148 ML/MIN (>60); Glucose 184 mg/dl (74-100); Potassium 3.5 mmoL/L (3.5-5.1); Sodium 141 mmol/L (136-145)
[2022-06-25 11:16] LABS: CATHL Activated Clotting Time 359 SEC (74-125)
--- NOTE | 2022-06-25 14:21 | HMH.PHACLD ---
Jeanette Gary has received discharge medication counseling on the following medications: ASPIRIN PLAVIX ATORVASTATIN METOPROLOL TARTRATE LISINOPRIL
== END 2022-06-25 14:23 ==
PROVIDERS: Internal Medicine Cardiovascular Disease; PCP Family Medicine; Visit Provider Internal Medicine
DX: E11.9 Type 2 diabetes mellitus without complications (principal); E66.9 Obesity, unspecified; E78.5 Hyperlipidemia, unspecified; G45.9 Transient cerebral ischemic attack, unspecified; I11.0 Hypertensive heart disease with heart failure; K92.2 Gastrointestinal hemorrhage, unspecified; R94.30 Abnormal result of cardiovascular function study, unspecified; I25.118 Atherosclerotic heart disease of native coronary artery with other forms of angina pectoris; Z79.4 Long term (current) use of insulin; Z79.899 Other long term (current) drug therapy; I50.9 Heart failure, unspecified
CPT/HCPCS: 36415; 80048; 85025; 85347; 92928; 93458; 99152; 99153; C1725; C1769; C1876; C9600; J1644; Q9967

== ENCOUNTER 2022-07-18 12:27 | Emergency (ER) | payer MEDICARE, MEDICAID, SELFPAY ==
[2022-07-18 12:27] VITALS: BP 116/70; PULSE 71; RESP 18; TEMP 36.7; O2SAT 95; BMI 43.9
[2022-07-18 12:45] VITALS: BP 103/63; PULSE 75; O2SAT 96
--- NOTE | 2022-07-18 13:00 | PC.NURSE ---
1300 PT HAD LARGE BM IN BRIEF. CLEANED UP AT THIS TIME. CLEAN ATTENDS APPLIED. FAMILY AT BEDSIDE
--- NOTE | 2022-07-18 13:02 | HMH.EDGENADL ---
Discharge Plan Disposition Patient Disposition: Home, Self-Care Condition: Good Prescriptions Prescriptions: No Action metoprolol tartrate 75 mg tablet 75 mg PO BID pramipexole 1 MG tablet 1 mg PO HS furosemide 40 MG tablet 40 mg PO DAILY methocarbamol 500 MG tablet 500 mg PO QID atorvastatin 80 MG tablet 80 mg PO HS prednisone 10 MG tablet 10 mg PO DAILY insulin glargine 100 UNIT/ML solution 50 unit SQ DAILY clopidogrel 75 MG tablet 75 mg PO DAILY aspirin 81 MG tablet,delayed release (DR/EC) 81 mg PO DAILY mycophenolate mofetil 500 MG tablet 500 mg PO BID pantoprazole 40 MG tablet,delayed release (DR/EC) 40 mg PO DAILY gabapentin 300 MG capsule 300 mg PO BID mirtazapine 45 MG tablet 45 mg PO HS lisinopril 5 MG tablet 5 mg PO DAILY quetiapine 50 MG tablet 50 mg PO QID polyethylene glycol 3350 17 GM powder in packet 17 gm PO DAILY melatonin 3 MG tablet 3 mg PO HS nitroglycerin 0.4 MG tablet, sublingual 0.4 mg SL Q5MINP PRN (Reason: Chest Pain) docusate sodium 100 MG capsule 100 mg PO DAILYP PRN (Reason: constipation) insulin glargine-yfgn 100 UNIT/ML solution 52 unit SQ HS omega-3 fatty acids-fish oil 1 EACH capsule 2 cap PO DAILY Label Comments: Give 2000 mg by mouth one time a day for hyperlipidemia isosorbide mononitrate 30 MG tablet 30 mg PO DAILY Qty: 30 1RF Referrals Follow up/Referrals: Provider,Referral, MD [Primary Care Provider] - See instructions Activity Restrictions/Add. Instructions Additional Instructions/Restrictions: You have been evaluated for red eye, diagnosed with a subconjunctival hemorrhage. This is a benign condition. Should improve over the next 10 to 14 days. Please follow-up with an eye doctor this week, as well as next week. Return to the emergency department at once for any new or worsening symptoms, vision changes, eye pain, other concerns. Clinical Impressions Clinical Impression: Subconjunctival hemorrhage Instructions Patient Instructions: DI for Subconjunctival Hemorrhage Discharge ED Provider: Cynthia Juarez Adult HPI General Chief complaint: Eye Problems Stated complaint: EYE Time Seen by Provider: 07/18/22 12:45 Mode of Arrival: EMS Source of Information: Patient, EMS and Medical Record Limitations: mental History of Present Illness HPI narrative: 67-year-old female presenting to the emergency department by EMS. Her detention, [facility], called 911 for her today. They said they noticed she had a red area on her left thigh. It appeared to be bulging. Patient wears glasses. Denies eye pain. Denies changes to her vision, spots or blurriness. She does not remember an injury or trauma. Chart review shows that she takes aspirin and Plavix after a TIA. No other blood thinners. Related Data Home Medications Medication Instructions Recorded Confirmed aspirin 81 mg tablet,delayed 81 mg PO DAILY heart health 07/30/21 07/05/22 release atorvastatin 80 mg tablet 80 mg PO HS High cholesterol 07/30/21 07/05/22 clopidogrel 75 mg tablet 75 mg PO DAILY stroke prevention 07/30/21 07/05/22 furosemide 40 mg tablet 40 mg PO DAILY diuretic 07/30/21 07/05/22 gabapentin 300 mg capsule 300 mg PO BID Pain 07/30/21 07/05/22 insulin glargine 100 unit/mL 50 unit SQ DAILY Diabetes 07/30/21 07/05/22 subcutaneous solution lisinopril 5 mg tablet 5 mg PO DAILY High blood pressure 07/30/21 07/05/22 methocarbamol 500 mg tablet 500 mg PO QID spasms 07/30/21 07/05/22 mirtazapine 45 mg tablet 45 mg PO HS Depression 07/30/21 07/05/22 mycophenolate mofetil 500 mg tablet 500 mg PO BID [facility]NEY vasculitis 07/30/21 07/05/22 pantoprazole 40 mg tablet,delayed 40 mg PO DAILY acid reflux 07/30/21 07/05/22 release pramipexole 1 mg tablet 1 mg PO HS parkinsons 07/30/21 07/05/22 prednisone 10 mg tablet 10 mg PO DAILY inflammation
--- NOTE | 2022-07-18 13:08 | PC.NURSE ---
ATTEMPTED TO PERFORM EYE EXAM, PT UNABLE R/T PREVIOUS STROKES. PT DOES NOT KNOW ALPHABET. SISTER REPORTS SOME BLINDNESS R/T STROKES WELL
--- NOTE | 2022-07-18 13:12 | PC.NURSE ---
ED MD AT BEDSIDE TO EVALUATE PT
--- NOTE | 2022-07-18 13:44 | PC.NURSE ---
REPORT GIVEN TO COURTNEY AT [facility]
[2022-07-18 14:00] VITALS: BP 108/70; PULSE 75; RESP 18; TEMP 36.8; O2SAT 95
--- NOTE | 2022-07-18 14:00 | PC.NURSE ---
EMS HERE TO TRANSPORT PT TO [facility]
== END 2022-07-18 14:00 | disposition home or self-care (01) ==
PROVIDERS: Emergency Provider Emergency Medicine; PCP Family Medicine
DX: H11.32 Conjunctival hemorrhage, left eye; Z79.82 Long term (current) use of aspirin; Z79.899 Other long term (current) drug therapy; Z79.4 Long term (current) use of insulin; Z88.8 Allergy status to other drugs, medicaments and biological substances; I25.10 Atherosclerotic heart disease of native coronary artery without angina pectoris; I10 Essential (primary) hypertension; E78.5 Hyperlipidemia, unspecified; E11.9 Type 2 diabetes mellitus without complications; Z86.73 Personal history of transient ischemic attack (TIA), and cerebral infarction without residual deficits; G31.83 Neurocognitive disorder with Lewy bodies; F02.81 Dementia in other diseases classified elsewhere, unspecified severity, with behavioral disturbance
CPT/HCPCS: 99282

== ENCOUNTER 2022-08-13 13:25 | Outpatient (RCR) | payer MEDICARE, MEDICAID, SELFPAY | END 2022-08-13 14:15 | disposition home or self-care (01) | LOC: PT 13:25 | PROVIDERS: Visit Provider Internal Medicine | DX: Z95.5 Presence of coronary angioplasty implant and graft (principal) ==

== ENCOUNTER 2024-08-21 13:52 | Outpatient (CLI) | payer MEDICARE, MEDICAID, SELFPAY ==
--- NOTE | 2024-08-21 13:57 | CA_ITS ---
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 5.10 mmHg Mitral Valve MV E Max Raúl. 66.0 (40-130 cm/s) MV A Velocity 63.0 (40-130 cm/s) E/A Ratio 1.05 MV PHT 44.0 ms Pulmonary Valve PV Peak Velocity 69.0 (50-150 cm/s) Tricuspid Valve TR P. Velocity 276.00 cm/s RAP Estimate 10.00 mmHg RVSP 40.50 mmHg Left Ventricle The left ventricle is normal size. The left ventricular systolic function is normal. The left ventricular ejection fraction is within the normal range. There is increased LV wall thickness. There is normal LV segmental wall motion. Transmitral Doppler flow pattern suggests impaired LV relaxation. LVEF is 55%. Right Ventricle Right ventricle is mildly dilated. The right ventricular systolic function is normal. Atria The left atrium size is normal. The right atrium size is normal. There is no Doppler evidence of interatrial shunt. Aortic Valve The aortic valve is mildly thickened. Trace aortic regurgitation. There is no aortic valvular stenosis. Mitral Valve The mitral valve leaflets are mildly thickened. Trace mitral regurgitation. No evidence of mitral valve stenosis. Tricuspid Valve The tricuspid valve leaflets are thin and pliable. Mild tricuspid regurgitation. RVSP is 25-30 mmHg. Pulmonic Valve The pulmonary valve is normal in structure. Trace pulmonic regurgitation. Great Vessels The aortic root is normal in size. The ascending aorta is not well-visualized. IVC is normal in size and collapses >50% with inspiration. Pericardium There is no pericardial effusion. Other Information Study Quality: Technically Difficult Conclusion Technically difficult study due to poor acoustic windows. Normal biventricular systolic function. Mild RV dilation. Mild TR. Electronically signed by : Arcelia Martinez MD 08/24/2024 14:34:21
== END 2024-08-21 23:59 | disposition home or self-care (01) ==
PROVIDERS: PCP Family Medicine; Visit Provider Physician Assistant
DX: Z01.818 Encounter for other preprocedural examination (principal); I36.1 Nonrheumatic tricuspid (valve) insufficiency; I10 Essential (primary) hypertension; I25.10 Atherosclerotic heart disease of native coronary artery without angina pectoris
CPT/HCPCS: 93306

== ENCOUNTER 2024-09-18 07:04 | Day surgery (SDC) | payer MEDICARE, MEDICAID, SELFPAY ==
[2024-09-16 16:18] VITALS: BMI 35.4
--- OUTSIDE RECORDS SUMMARY | 2024-09-18 07:08 | XMS_ITS | Continuity of Care Document ---
Author Organization [facility] Address [address] [place] [address] Phone Care Team Providers Care Medical Staff Services Manager Name Role Phone No Information Unavailable Unavailable Advance Directives Directive Yes / No Effective Date File Name No Information Encounters Encounter Description Practice Location Reason(s) For Visit Diagnoses Date Provider Providers Copied on Encounter [facility], [address] [place], [id number], [place] tel:[phone] No Information No Information Family History Family Member Type Diagnosis Age At Onset No Information Payers Payer name Insurance type Covered alliance party ID Authoriza tion(s) No Information Social History Type Description Quantity Date Captured Comments Sex Female Smoking Status No Information Chief Complaint And Reason For Visit No Information Reason For Referral Reason For Referral No Information History Of Present Illness Encounter Date Complaint History Of Prese nt Illness No Information Functional Status Date Functional Assessmen t No Information Instructions Date Instruction Additional Infor mation No Information Assessments Type Assessment Date No Information Patient Care Teams Name Effective Dates (start - stop) Status Members No Information
--- OUTSIDE RECORDS SUMMARY | 2024-09-18 07:08 | XMS_ITS | Continuity of Care Document ---
Author Organization [address] [place] [address] Address [address] [facility] [address] [place] [address] Phone Care Team Providers Care Marine Equipment Preservation Inspector Name Role Phone Jonnathan MANAGER ETHICS, Ag Unavailable Unavailable Allergies, Adverse Reactions, Alerts Substance Reaction Status Criticality iodine Active No Information Medications Medication Instructions Dosage Effective Dates (start - stop) Status Comments aspirin 81 mg chewable tablet - Active sulfamethoxazole 400 mg-trimethoprim 80 mg tablet - Active sulfamethoxazole 800 mg-trimethoprim 160 mg tablet - Active TRUEplus Insulin 1 mL 31 gauge x 5/16 syringe - Active magnesium oxide 400 mg (241.3 mg magnesium) tablet - Active ofloxacin 0.3 % eye drops - Active divalproex 250 mg tablet,delayed release - Active escitalopram 10 mg tablet - Active isosorbide dinitrate 30 mg tablet - Active ketorolac 0.4 % eye drops - Active prednisolone acetate 1 % eye drops,suspension - Active BD SafetyGlide Insulin Syringe 1 mL 31 gauge x 15/64 - Active senna 8.6 mg tablet - Active acetaminophen 500 mg tablet - Active acyclovir 800 mg tablet - Ac tive Anti-Diarrheal (loperamide) 2 mg tablet - Active oseltamivir 75 mg capsule - Active albuterol sulfate 2.5 mg/3 mL (0.083 %) solution for nebulization - Active famciclovir 500 mg tablet - Active famotidine 20 mg tablet - Ac tive Paxlovid 150 mg-100 mg tablets in a dose pack (Renal Dose) - Active Antifungal (miconazole) 2 % topical powder - Active ciprofloxacin 500 mg tablet - Active escitalopram 5 mg tablet - A ctive loperamide 2 mg capsule - Ac tive polyethylene glycol 3350 17 gram/dose oral powder - Active nystatin 100,000 unit/gram topical ointment - Active mycophenolate mofetil 500 mg tablet - Active quetiapine 50 mg tablet - Ac tive Semglee (insulin glargine-yfgn) 100 unit/mL subcutaneous solution - Active clopidogrel 75 mg tablet - A ctive pantoprazole 40 mg tablet,delayed release - Active methocarbamol 500 mg tablet - Active gabapentin 300 mg capsule - Active atorvastatin 80 mg tablet - Active furosemide 40 mg tablet - Ac tive lisinopril 5 mg tablet - Act millie metoprolol tartrate 50 mg tablet - Active mirtazapine 45 mg tablet - A ctive olanzapine 2.5 mg tablet - A ctive pramipexole 1 mg tablet - Ac tive prednisone 10 mg tablet - Ac tive Semglee U-100 Insulin 100 unit/mL subcutaneous solution - Active nitrofurantoin monohydrate/macrocrystals 100 mg capsule - Active ondansetron HCl 4 mg tablet - Active oxycodone 5 mg tablet - Acti ve hydroxyzine HCl 25 mg tablet - Active Lantus U-100 Insulin 100 unit/mL subcutaneous solution - Active insulin aspart U-100 100 unit/mL subcutaneous solution - Active quetiapine 100 mg tablet - A ctive pramipexole 0.5 mg tablet - Active cephalexin 250 mg capsule - Active cephalexin 500 mg capsule - Active hydroxyzine HCl 50 mg tablet - Active lisinopril 20 mg tablet - Ac tive Levemir U-100 Insulin 100 unit/mL subcutaneous solution - Active Novolog U-100 Insulin aspart 100 unit/mL subcutaneous solution - Active fluconazole 100 mg tablet - Active haloperidol lactate 5 mg/mL injection solution - Active nitrofurantoin macrocrystal 100 mg capsule - Active olanzapine 5 mg tablet - Act millie prednisone 50 mg tablet - Ac tive prednisone 20 mg tablet - Ac tive nystatin 100,000 unit/gram topical powder - Active nitroglycerin 0.4 mg sublingual tablet - Active Tresiba U-100 Insulin 100 unit/mL subcutaneous solution - Active Humalog U-100 Insulin 100 unit/mL subcutaneous solution - Active Procedures Procedure Date Trim nail(s) DEBRIDE NAIL 1-5 SBSQ NF CARE LOW MDM 20 Complete Series Of Radiographic Images S Periodic Oral Evaluation DEBRIDE NAIL 1-5 REMOVE IMPACTED EAR WAX DEBRIDE NAIL 1-5 FUNDUS PHOTOGRAPHY COMPRE OPH EXAM EST PT 1/> DEBRIDE NAIL 1-5 Low extemity neur exam docum Periodic Oral Evaluation Cleaning And Inspection Of UCD Oral hygene instruction DEBRIDE NAIL 1-5 Low extemity neur exam docum DEBRIDE NAIL 1-5 Diabetic Foot Exam Performed Cleaning And Inspection Of UCD Periodic Oral Evaluation Periodic Oral Evaluation Occlusal Adjustment-Limited Reline Kristian Partial [place] Chair Vision svcs frames purchases Warranty Bifocal Lens EYE EXAM & TREATMENT Complete Denture - Maxillary Complete Denture - Mandibular Denture ID Denture ID DEBRIDE NAIL 1-5 Diabetic Foot Exam Performed Reline Complete Max [facility] Lab Reline Complete Kristian [facility] 3 Try In Oral hygene instruction Cleaning And Inspection Of UCD Periodic Oral Evaluation DEBRIDE NAIL 1-5 Diabetic Foot Exam Performed DEBRIDE NAIL 1-5 NURSING FAC CARE SUBSEQ Oral hygene instruction Periodic Oral Evaluation Cleaning And Inspection Of UCD Denture Impression Impression / Bite DEBRIDE NAIL 1-5 DEBRIDE NAIL 1-5 NURSING FAC CARE SUBSEQ Compsve Oral Eval- New/Est Pat Oral hygene instruction FRAMES PURCHASES FITTING OF SPECTACLES EXCEPT FOR APHAKIA BIFOCAL SPHERE BIFOCAL PLANO TO PLUS OR MINUS 4. 00D PER LENS DEBRIDE NAIL 1-5 NURSING FAC CARE SUBSEQ EYE EXAM NEW PATIENT Advance Directives Directive Yes / No Effective Date File Name No Information Encounters Encounter Description Practice Location Reason(s) For Visit Diagnoses Date Provider Providers Copied on Encounter SBSQ NF CARE LOW MDM 20 [facility], [address] [place] [address] [address], [place], [place], [id number], tel:[phone] [facility] Acquired absence of right leg above kneeNail dystrophyOnych ogryphosisType 2 diabetes mellitus with diabetic neuropathy, unspecified 4 [place]. [facility], [address] [place], [place] [address], [place], [place], [id number], tel:[phone] [facility] No Information 4 Patel Sosai. . [facility], [address] [place], [place] [address], [place], [place], [id number], [place] tel:[phone] [facility] Encounter for dental examination and cleaning without abnormal findings 4 Patel De Jesus. . Referring Provider: Keith Bravo. [address] [place] [address], [address] [place] [address], [place], [place], [id number], [place] tel:[phone] [facility] Acquired absence of right leg above kneeTinea unguiumType 2 diabetes w diabetic peripheral angiopath w/o gangrene 4 Poncho Regan. [address] [facility], [address], [place], [address], [place]. [facility], [address] [place] [address], [place], [place], [id number], [place] tel:[phone] [facility] hearing loss (chief complaint) Impacted cerumen, bilateral 4 Lucas-Hard rafael Deena. [address] [facility], [address], [place], [address], [place]. Referring Provider: Keith Bravo. [address] [place] [address], [address] [place], [place] [address], [place], [place], [id number], [place] tel:[phone] [facility] Acquired absence of right leg above kneeTinea unguiumType 2 diabetes w diabetic peripheral angiopath w/o gangrene 4 Poncho Rodriguez [address] [facility], [address], [place], [address], [place]. Referring Provider: Keith Bravo. [address] [place] [address], [address] [place], [place] [address], [place], [place], [id number], [place] tel:[phone] [facility] Cataract (chief complaint) Age-related nuclear cataract, bilateralType 2 diabetes mellitus without complications 4 Khoi Clarke , [place]. Referring Provider: Keith Bravo. [address] [place] [address], [address] [place], [place] [address], [place], [place], [id number], tel:[phone] [facility] Acquired absence of right leg above kneeTinea unguiumType 2 diabetes w diabetic peripheral angiopath w/o gangrene 4 Poncho Rodriguez [address] [facility], [address], [place], [address], [place]. Referring Provider: Keith Bravo. [address] [place] [address], [address] [place], [place] [address], [place], [place], [id number], [place] tel:[phone] [facility] Encounter for dental examination and cleaning without abnormal findings 4 Gregorio Mckeon [address] [facility], [address], [place], [place], [id number], [place]. tel:[phone] Referring Provider: Keith Bravo. [address] [place] [address], [address] [place], [place] [address], [place], [place], [id number], [place] tel:[phone] [facility] Acquired absence of right leg above kneeTinea unguiumType 2 diabetes w diabetic peripheral angiopath w/o gangrene 3 Poncho Rodriguez [address] [facility], [address], [place], [address], [place]. [facility] [place], [address] [place], [place] [address], [place], [place], [id number], [place] tel:[phone] [facility] Tinea unguiumType 2 diabetes w diabetic peripheral angiopath w/o gangreneAcquir ed absence of right leg above knee 3 Poncho Regan. [address] [facility], [address], [place], [address], [place]. Referring Provider: Keith Bravo. [facility], [address] [place], [place] [address], [place], [place], [id number], [place] tel:[phone] [facility] Encounter for dental examination and cleaning without abnormal findingsEncoun ter for fitting and adjustment of dental prosthetic device 3 Lilia Ont[place]CL[place]IS[place], [place]. tel:[phone] Referring Provider: Keith Bravo. [facility], [address] [place], [place] [address], [place], [place], [id number], [place] tel:[phone] [facility] Presbyopia [address] Raven [address]ierrez. [address] [place] [address], [address], [place], [address], [place]. [facility], [address] [place], [place] [address], [place], [place], [id number], [place] tel:[phone] [facility] Diabetic eye exam (chief complaint) Type 2 diabetes mellitus without complicationsA ge-related nuclear cataract, bilateral 3 Raven Gutierrez. [id number] [place] [address], [address], [place], [address], [place]. Referring Provider: Keith Bravo. [facility], [address] [place] [address], [place], [place], [id number], [place] tel:[phone] [facility] No Information 3 Lilia OntiverosCL[place]IS[place], [place]. tel:[phone] [place] [address], [address] [place], [place] [address], [place], [place], [id number], [place] tel:[phone] [facility] Complete loss of teeth, unspecified cause, unspecified classEncounter for dental examination and cleaning without abnormal findings 3 [facility] , [place]. tel:[phone] Referring Provider: Keith Bravo. [address] [place] [address], [address] [place] [address], [place], [place], [id number], [place] tel:[phone] [facility] Acquired absence of right leg above kneeTinea unguiumType 2 diabetes w diabetic peripheral angiopath w/o gangrene 3 Poncho Rodriguez [address] [facility], [address], [place], [address], [place]. Referring Provider: Keith Bravo. [address] [place] [address], [address] [place] [address], [place], [place], [id number], [place] tel:[phone] [facility] Encounter for fitting and adjustment of dental prosthetic device 3 [place], [place]. Referring Provider: Keith Bravo. [address] [place] [address], [address] [place] [address], [place], [place], [id number], [place] tel:[phone] [facility] No Information 2 [facility] , [place]. tel:[phone] [place] [address], [address] [place] [address], [place], [place], [id number], [place] tel:[phone] [facility] Encounter for dental examination and cleaning without abnormal findings 2 [facility] , [place]. tel:[phone] Referring Provider: Keith Bravo. [address] [place] [address], [address] [place] [address], [place], [place], [id number], [place] tel:[phone] [facility] Acquired absence of right leg above kneeTinea unguiumType 2 diabetes w diabetic peripheral angiopath w/o gangrene 2 Poncho Rodriguez [address] [facility], [address], [place], [address], [place]. Referring Provider: Keith Bravo. NURSING FAC CARE SUBSEQ [address] [place] [address], [address] [place] [address], [place], [place], [id number], [place] tel:[phone] [facility] Acquired absence of right leg above kneeTinea unguiumType 2 diabetes w diabetic peripheral angiopath w/o gangreneAbrasi on, left foot, initial encounter 2 Poncho Regan. [address] [facility], [address], [place], [address], [place]. Referring Provider: Keith Bravo. [address] [place] [address], [address] [place] [address], [place], [place], [id number], [place] tel:[phone] [facility] Encounter for dental examination and cleaning without abnormal findings 2 [place], [place]. Referring Provider: Keith Bravo. [address] [place] [address], [address] [place] [address], [place], [place], [id number], [place] tel:[phone] [facility] Tinea unguiumAcquire d absence of right leg above kneeType 2 diabetes w diabetic peripheral angiopath w/o gangrene 2 [place], [place]. Referring Provider: Keith Bravo. NURSING FAC CARE SUBSEQ [address] [place] [address], [address] [place], [place] [address], [place], [place], [id number], [place] tel:[phone] [facility] Acquired absence of right leg above kneeTinea unguiumType 2 diabetes w diabetic peripheral angiopath w/o gangreneContus ion of left lesser toe(s) w damage to nail, init 2 Poncho Rodriguez [address] [facility], [address], [place], [address], [place]. Referring Provider: Keith Bravo. [address] [place] [address], [address] [place], [place] [address], [place], [place], [id number], [place] tel:[phone] [facility] Encounter for dental exam and cleaning w/o abnormal findings 2 Chago Duarte. [address] [facility], [address], [place], [place], [id number], [place]. tel:[phone] Referring Provider: Keith Bravo. [address] [place] [address], [address] [place] [address], [place], [place], [id number], tel:[phone] [facility] Presbyopia [id number] [place] [address], [address], [place], [address], [place]. NURSING FAC CARE SUBSEQ [address] [place] [address], [address] [place] [address], [place], [place], [id number], [place] tel:[phone] [facility] Tinea unguiumType 2 diabetes w diabetic peripheral angiopath w/o gangreneContus ion of left lesser toe(s) w/o damage to nail, initAcquired absence of right leg above knee 2 Poncho Regan. [address] [facility], [address], [place], [address], [place]. Referring Provider: Keith Bravo. [address] [place] [address], [address] [place], [place] [address], [place], [place], [id number], [place] tel:[phone] [facility] Diabetic eye exam (chief complaint) Type 2 diabetes mellitus without complicationsA ge-related nuclear cataract, bilateral 2 Raven Gutierrez. [address] [place] [address], [facility] [address], [place], [address], [place]. Referring Provider: Keith Bravo. [address] [place] [address], [address] [place] [address], [place], [place], [id number], tel:[phone] [facility] No Information 2 Raven Gutierrez. [address] [facility], [address], [place], [address], [place]. Family History Family Member Type Diagnosis Age At Onset No Information Payers Payer name Insurance type Covered libertarian ID Authoriza tion(s) [employer] Medicare [id number] Medicaid [facility] [id number] Social History Type Description Quantity Date Captured Comments Sex Female Smoking Status No Information Chief Complaint And Reason For Visit No Information Reason For Referral Reason For Referral No Information Plan Of Treatment Date Type Action Status Appointment Jeanette Gary. MONA NORMAN Appointment Jeanette Gary. MONA NORMAN Patient Education Earwax Blockage: Care I nstructions completed Patient Education Learning About Dental Care and Your Health Problem completed Patient Education Learning About Dental Care and Your Health Problem completed Patient Education Learning About Dentures completed Patient Education Learning About Dental Care and Your Health Problem completed Patient Education Learning About Dentures completed Patient Education Learning About Dentures completed Patient Education Learning About Dental Care and Your Health Problem completed Patient Education Learning About Dental Care and Your Health Problem completed History Of Present Illness Encounter Date Complaint History Of Prese nt Illness Cataract The 69 year old patient presents for evaluation of Cataract in the right eye and left eye. It occurs always. The onset was progressive. It affects both near and far vision. Diabetic eye exam The 68 year ol d female presents for evaluation of Diabetic eye exam in the right eye and left eye. It occurs all the time. The onset was progressive. It affects both near and far vision. Diabetic eye exam The 66 year ol d female presents for evaluation of Diabetic eye exam in the right eye and left eye. It occurs all the time. The onset was gradual. It affects both near and far vision. The symptom is constant. The condition is moderate. Functional Status Date Functional Assessmen t No Information Instructions Date Instruction Additional Infor mation This is a chronic st able problem, Will reassess and follow up in 2-3 months Related to Type 2 diabetes mellitus with diabetic neuropathy, unspecified All documented thick ened nails were debrided using a rotary tool and nail nipper. Related to Onychogryphosis All documented dystr ophic nails were reduced in length as needed to prevent pain and other symptoms. Related to Nail dystrophy Toenails 1-5 left we re debrided in length and thickness without incident. Follow up in 2-3 months. Related to Tinea unguium Follow up in 6-9 mon ths or sooner if needed. Related to Impacted cerumen, bilateral Toenails 1-5 left we re debrided in length and thickness without incident. Follow up in 2-3 months. Related to Tinea unguium Return in 4-6 months for cataract eval. Related to Age-related nuclear cataract, bilateral Impression/Plan - No active diabetic retinopathy present in either eye. We will monitor at regular intervals. Related to Type 2 diabetes mellitus without complications Impression/Plan - Ca taracts are visually significant; Please schedule for cataract evaluation with Data Processing Supervisor of facility choice. Related to Age-related nuclear cataract, bilateral Follow up - Return i n 4-6 months for cataract eval. Related to Age-related nuclear cataract, bilateral Toenails 1-5 left we re debrided in length and thickness without incident. Follow up in 2-3 months. Related to Tinea unguium Toenails x 5 left we re debrided in length and thickness without incident. Follow up in 2-3 months. Related to Tinea unguium Toenails 1-5 left we re debrided in length and thickness without incident. Follow up in 2-3 months. Related to Tinea unguium Impression/Plan - Ca taracts are moderate and are affecting visual acuity; however, no treatment recommended at this time. We will monitor for progression. Related to Age-related nuclear cataract, bilateral Impression/Plan - No active diabetic retinopathy present in either eye. We will monitor at regular intervals. Related to Type 2 diabetes mellitus without complications Toenails 1-5 left we re debrided in length and thickness without incident. Follow up in 2-3 months. Related to Tinea unguium Toenails x 4 left we re debrided in length and thickness without incident. Follow up in 2-3 months. Related to Tinea unguium Toenails 1-5 left we re debrided in length and thickness without incident. Follow up in 2-3 months. Related to Tinea unguium Discussed with the aung yan. No dressing needed at this time. Monitor for infection. Related to Abrasion, left foot, initial encounter Toenails 1-5 left we re debrided in length and thickness without incident. Follow up in 2-3 months. Related to Tinea unguium Debrided nail left 5 th toe and it was completely removed. No dressing needed at this time. Monitor for infection. Discussed with the nurse. Related to Contusion of left lesser toe(s) w damage to nail, init Toenails 1-4 b/l wer e debrided in length and thickness without incident. Follow up in 2-3 months. Related to Tinea unguium Discussed with the aung yan. No dressing needed at this time. Monitor for infection. Related to Contusion of left lesser toe(s) w/o damage to nail, init Toenails 1-5 left we re debrided in length and thickness without incident. Follow up in 2-3 months. Related to Tinea unguium We will schedule an appoinment in 12-15 months for a dilated fundus exam. Related to Age-related nuclear cataract, bilateral Impression/Plan - Ca taracts are moderate and are affecting visual acuity; however, no treatment recommended at this time. We will monitor for progression. Related to Age-related nuclear cataract, bilateral Follow up - We will schedule an appoinment in 12-15 months for a dilated fundus exam. Related to Age-related nuclear cataract, bilateral Impression/Plan - No active diabetic retinopathy present in either eye. We will monitor at regular intervals. Related to Type 2 diabetes mellitus without complications Assessments Type Assessment Date assessment Acquired absence of right leg ab ove knee assessment Nail dystrophy assessment Onychogryphosis assessment Type 2 diabetes mellitus with di abetic neuropathy, unspecified Patient Care Teams Name Effective Dates (start - stop) Status Members No Information
--- NOTE | 2024-09-18 07:46 | HMH.SCOPE ---
Procedure: Date: 09/18/24 Patient Date of :: 1955 Procedure Performed:: Total colonoscopy to terminal ileum with polypectomy using biopsy and snare Indications:: Patient is a 69-year-old with reported history of dementia, anemia, hyperlipidemia, coronary artery disease with previous stenting, hypertension, previous AKA, who had an inpatient admission in July 2021 with rectal bleeding. She did undergo upper endoscopy with Dr. Valencia which was relatively unremarkable. I had performed colonoscopy during her inpatient admission and she was found to have a ridge polyp in the transverse colon which was removed and proven to be sessile serrated adenoma. Source of her bleeding was a mucosal rectal tear for which hemoclips were placed. 3-year follow-up colonoscopy was recommended given the sessile serrated adenoma. . Performing Provider:: Endy Goff MD Referring Provider:: Keith Bravo Sedation:: MAC sedation Procedure:: Patient history was obtained and appropriate physical examination was performed. Patient's medications and allergies were reviewed. Informed consent was obtained after explaining the benefits, alternatives, and risks of the procedure including, but not limited to, bleeding, perforation, missed lesions, and adverse reaction to anesthesia medications. Patient was transported to endoscopy procedure room. Patient was connected to monitoring devices. Throughout the procedure the patient's blood pressure, pulse, and oxygen saturations were monitored continuously. Patient identification and planned procedure were verified by the staff. Patient was positioned in lateral decubitus position. Digital anorectal exam was performed. Variable stiffness Olympus colonoscope was inserted and advanced under direct visualization to the cecum. Adequacy of the colonic preparation was noted. The colonoscope was advanced a short distance into the terminal ileum. The colonoscope was then slowly withdrawn while carefully examining the color, texture, anatomy, and integrity of the mucosoa circumferentially. Within the rectum retroflexion was performed. Colonoscope was then withdrawn. Impression: Colonic preparation was fair to poor. There was opaque particulate liquid stool throughout the colon. This was most pronounced in the cecum. Extremely high volume trans colonoscopic irrigation and suctioning was performed which allowed for decent visualization. In the ascending colon there were a couple of areas consistent with submucosal lipoma. In the ascending colon there was a tiny polyp removed with biopsy forceps in a piecemeal fashion. In the distal transverse colon distal transverse there was a colon polyp, moderate sized, removed with cutting snare. In the proximal descending colon distal to the hepatic flexure there was a moderate polyp removed with snare. The descending colon there was a diminutive polyp removed in a piecemeal fashion using biopsy forceps. There was some sigmoid diverticulosis. Findings:: Polyps as noted above, total of 4 polyps removed Sigmoid diverticulosis Recommendations:: Repeat colonoscopy pending pathology and patient's health status. Possibly 2 or 3 years. Complications:: None immediately apparent Estimated blood obtained (mL): 2 Colonoscopy Component Colonoscopy Component Was a colonoscopy performed during today's procedure?: Yes Recommended follow up colonoscopy of at least 10 years?: No If no, follow up colonoscopy recommended in ___ years?: See above Reason for not recommending >/= 10 yr follow-up interval?: See above
[2024-09-18 07:52] VITALS: BP 148/68; PULSE 51; RESP 18; TEMP 36.6; O2SAT 94
--- NOTE | 2024-09-18 08:00 | EXP.ANES.CKL ---
[facility] Disclaimer: The information contained in this section may have been updated after the patient was seen, as this information can be updated by other users. Medical History History of osteoarthritis History of restless legs syndrome History of gastroesophageal reflux (GERD) History of depression History of heart failure History of spinal stenosis History of CVA (cerebrovascular accident) History of dementia History of dysphagia H/O diabetes mellitus Pre-op testing TIA (transient ischemic attack) HLD (hyperlipidemia) HTN (hypertension) CAD (coronary artery disease) Surgical History History of colonoscopy History of right lower extremity amputation History of coronary artery stent placement Family History Other Family history of coronary artery disease Social History (Updated 09/18/24 @ 07:48 by Carmella Black RN) Smoking Status: Never smoker alcohol intake: never substance use type: denies use current occupational status: retired Travel in the last 8 weeks: None household members: none housing: [facility] current occupational exposures/hazards: No [facility] Anesthesia Checklist Patient Identification Patient Identification: Arm Band, Family and Verbal (Name & ) Structural Data Admitted From: Home Planned Operative Procedure/s: Colonoscopy Consent for Planned Operative Procedure(s) Verified: Yes Verified Documents: Surgical Consent and History and Physical NPO Status Verified Time NPO: 00:00 Chart Verification Results Verified: CBC, BMP, ECG and Chest Xray Additional verifications Fingerstick Blood Glucose: 68 Patient : No Anesthesia Reactions: No Cardiovascular Assessment Heart Sounds: S1 & S2 Pulse Rhythm: Irregular Peripheral Edema: No Airway Assessment Mallampati Score:: Class II C-Spine Mobility Assessed: Yes (FROM) TMJ Mobility Assessed: Yes Dentition: Partials (Upper in situ. Nothing loose per pt.) Neurological Assessment Level of Consciousness: Awake, Alert, Appropriate and Follows Commands Hx Seizures: No Numbness or tingling in extremities: No Anesthesia Plan Anesthesia Risk discussed: Yes Anesthesia Plan: Verified ASA Class: III Anesthesia Type: MAC
[2024-09-18] MEDS: 0.9 % SODIUM CHLORIDE 1000ML 1,000 ML 25 ML IV (08:20)
[2024-09-18 08:23] LABS: POC Glucose,Bedside 68 (70-110)
--- NOTE | 2024-09-18 09:11 | SUR.OPER ---
patients iv infiltrated when sedation was started, a new iv was placed in her left hand with a 22g by marilyn mccain crna
[2024-09-18 09:45] VITALS: BP 86/60; PULSE 52; RESP 16; TEMP 36.1; O2SAT 96
[2024-09-18 09:55] VITALS: BP 105/58; PULSE 55; O2SAT 93
[2024-09-18 10:05] VITALS: BP 113/52; PULSE 55; RESP 17; O2SAT 94
[2024-09-18 10:15] VITALS: BP 107/47; PULSE 50; RESP 17; O2SAT 95
[2024-09-18 10:34] LABS: POC Glucose,Bedside 66 (70-110)
== END 2024-09-18 10:30 | disposition home or self-care (01) ==
PROVIDERS: PCP Family Medicine; Visit Provider Surgery
PROC: 0DJD8ZZ Inspection of Lower Intestinal Tract, Via Natural or Artificial Opening Endoscopic (ICD-10-PCS; CPT 45380; principal; 2024-09-18 08:30)
DX: K63.5 Polyp of colon (principal); K57.30 Diverticulosis of large intestine without perforation or abscess without bleeding; E11.8 Type 2 diabetes mellitus with unspecified complications; Z79.4 Long term (current) use of insulin; Z09 Encounter for follow-up examination after completed treatment for conditions other than malignant neoplasm; Z86.0100 Personal history of colon polyps, unspecified; Z80.0 Family history of malignant neoplasm of digestive organs; Z83.719 Family history of colon polyps, unspecified
CPT/HCPCS: 45380; 45385; 82962; J1595; J2704; J7030